=== PATIENT | male | born 1965 | race Caucasian/White ===

== ENCOUNTER 2016-11-23 15:19 | Inpatient (IN) | payer SELFPAY ==
[~2016-11-23] VITALS: Ht 175.3 cm; Wt 138.6 kg
[2016-11-23 15:23] VITALS: BP 159/90; PULSE 68; RESP 13; TEMP 98.4; O2SAT 100
[2016-11-23 15:44] VITALS: BP 152/86; PULSE 71; RESP 19; TEMP 98.4; O2SAT 97
[2016-11-23] MEDS ORDERED: LOVA20TA PO (15:53)
[2016-11-23] MEDS ORDERED: RANI300T PO (15:53)
[2016-11-23] MEDS ORDERED: AMLO5TAB2 PO (15:53)
[2016-11-23] MEDS ORDERED: METF1000 PO (15:53)
[2016-11-23] MEDS ORDERED: LISI-515 PO (15:53)
[2016-11-23] MEDS ORDERED: PRIL20TA2 PO (15:53)
[2016-11-23] MEDS ORDERED: ASPI81CH CHEW (15:53)
--- NOTE | 2016-11-23 15:59 | PD ---
HPI . Chest pain Chief Complaint: Chest Pain Time Seen by Provider: 15:40 Travel History International Travel<30 days: Yes Contact w/Intl Traveler<30days: Yes Name of Country Traveled to: [place] Traveled to known affect area: No History of Present Illness HPI This is a patient from [place] who moved here 5 years ago but he has not yet established himself with a primary care provider here who presents with the chief complaint of chest pain which started yesterday while driving home. He reports that he has been traveling for the last 3 weeks. He's also complaining with epigastric pain. He rates his pain at 2/10. It is associated with burping which temporarily relieves his symptoms. He states that the symptoms have waxed and waned but have not completely resolved in the last 24 hours. He reports some mild nausea and some mild diaphoresis. He denies any shortness of breath. His medical history is significant for hypertension, hyperlipidemia, diabetes, GERD. He states that he has undergone a previous cardiac catheterization in the which showed some mild coronary artery disease. He started taking an aspirin a day at that time. He has had 2 subsequent stress tests which were reportedly negative. He states that one of them was an exercise stress test and the other was a nuclear stress test. PFSH Past Medical History Cardiac Catheterization: Yes Cardiovascular Problems: Yes High Cholesterol: Yes Chest Pain: Yes Coronary Artery Disease: Yes Diabetes: Yes Patient Takes Glucophage: Yes Hypertension: Yes Tetanus Vaccination: Unknown Social History Alcohol Use: Yes Tobacco Use: No Substance Use: No Allergies-Medications (Allergen,Severity, Reaction): Coded Allergies: No Known Allergies (Verified Allergy, Unknown, 11/23/16) Reported Meds & Prescriptions Reported Meds & Active Scripts Active Reported Aspirin 81 Mg Chew 81 Mg CHEW DAILY Prilosec (Omeprazole Magnesium) 20 Mg Tab 1 Tab PO DAILY Ranitidine (Ranitidine HCl) 300 Mg Tab 300 Mg PO DAILY Metformin (Metformin HCl) 1,000 Mg Tab 1,000 Mg PO BIDPC With meals Lovastatin 20 Mg Tab 20 Mg PO DAILY Amlodipine (Amlodipine Besylate) 5 Mg Tab 5 Mg PO DAILY Lisinopril 20 Mg Tab 20 Mg PO DAILY Review of Systems Except as stated in HPI: all other systems reviewed are Neg General / Constitutional: Positive: Other (mild diaphoresis) HENT: Positive: Headaches Cardiovascular: Positive: Chest Pain or Discomfort Respiratory: No: Shortness of Breath Physical Exam Narrative GENERAL: Obese man who does not appear to be in any acute distress. SKIN: warm/dry. HEAD: Normocephalic. Atraumatic. EYES: Pupils equal and round. No scleral icterus. No injection or drainage. ENT: No nasal bleeding or discharge. Mucous membranes pink and moist. NECK: Trachea midline. Full range of motion without pain.. CARDIOVASCULAR: Regular rate and rhythm. Heart sounds are normal. RESPIRATORY: No accessory muscle use. Clear to auscultation. Breath sounds equal bilaterally. GASTROINTESTINAL: Abdomen soft. Nontender. Bowel sounds present. Nondistended. MUSCULOSKELETAL: No obvious deformities. NEUROLOGICAL: Awake and alert. No obvious cranial nerve deficits. Motor grossly within normal limits. Normal speech. PSYCHIATRIC: Appropriate mood and affect; insight and judgment normal. Data Data Last Documented VS Vital Signs Date Time Temp Pulse Resp B/P (MAP) Pulse Ox O2 Delivery O2 Flow Rate FiO2 11/23/16 16:24 98.4 71 19 152/86 (108) 97 Room Air Orders Orders Basic Metabolic Panel (Bmp) (11/23/16 15:51) Ckmb (Isoenzyme) Profile (11/23/16 15:51) Complete Blood Count With Diff (11/23/16 15:51) D-Dimer (11/23/16 15:51) Magnesium (Mg) (11/23/16 15:51) Prothrombin Time / Inr (Pt) (11/23/16 15:51) Act Partial Throm Time (Ptt) (11/23/16 15:51) Troponin I (11/23/16 15:51) Chest, Single Ap (11/23/16 15:51) Ecg Monitoring (11/23/16 15:51) Iv Access Insert/Monitor (11/23/16 15:51) Oximetry (11/23/16 15:51) Morphine Inj (Morphine Inj) (11/23/16 16:00) Nitroglycerin 2% Oint (Nitroglycerin 2% (11/23/16 16:00) Sodium Chloride 0.9% Flush (Ns Flush) (11/23/16 16:00) Ondansetron Inj (Zofran Inj) (11/23/16 16:00) Electrocardiogram (11/23/16 18:30) Consent (11/23/16 17:31) Cardiac Catheterization (11/23/16 17:30) Heparin-Ns/Pf Inj (Heparin-Ns/Pf Inj) (11/23/16 17:58) Sodium Chlorid 0.9% 500 Ml Inj (Ns 500 M (11/23/16 17:59) Admit Order (Ed Use Only) (11/23/16 18:08) Labs Laboratory Tests Test 11/23/16 15:30 White Blood Count 7.5 TH/MM3 Red Blood Count 4.62 MIL/MM3 Hemoglobin 14.2 GM/DL Hematocrit 42.5 % Mean Corpuscular Volume 91.9 FL Mean Corpuscular Hemoglobin 30.8 PG Mean Corpuscular Hemoglobin Concent 33.5 % Red Cell Distribution Width 12.8 % Platelet Count 273 TH/MM3 Mean Platelet Volume 6.9 FL Neutrophils (%) (Auto) 52.8 % Lymphocytes (%) (Auto) 31.1 % Monocytes (%) (Auto) 8.2 % Eosinophils (%) (Auto) 7.1 % Basophils (%) (Auto) 0.8 % Neutrophils # (Auto) 3.9 TH/MM3 Lymphocytes # (Auto) 2.3 TH/MM3 Monocytes # (Auto) 0.6 TH/MM3 Eosinophils # (Auto) 0.5 TH/MM3 Basophils # (Auto) 0.1 TH/MM3 CBC Comment DIFF FINAL Differential Comment Prothrombin Time 10.8 SEC Prothromb Time International Ratio 1.0 RATIO Activated Partial Thromboplast Time 27.2 SEC D-Dimer Quantitative (PE/DVT) 0.24 MG/L FEU Blood Urea Nitrogen 13 MG/DL Creatinine 1.00 MG/DL Random Glucose 202 MG/DL Calcium Level 9.2 MG/DL Magnesium Level 1.7 MG/DL Sodium Level 137 MEQ/L Potassium Level 4.4 MEQ/L Chloride Level 103 MEQ/L Carbon Dioxide Level 27.3 MEQ/L Anion Gap 7 MEQ/L Estimat Glomerular Filtration Rate 79 ML/MIN Total Creatine Kinase 97 U/L Troponin I 0.14 NG/ML Exceptions Acute Myocardial Infarction ASA Not Given on Arrival: Already taken by patient MDM Medical Decision Making Medical Screen Exam Complete: Yes Emergency Medical Condition: Yes Medical Record Reviewed: Yes (no old records here) Interpretation(s) EKG shows a right bundle branch block but no acute ischemic changes. There are no old EKGs are system for comparison Differential Diagnosis Differential diagnosis of chest pain includes but is not limited to musculoskeletal pain, pulmonary embolism, acute coronary syndrome, pneumonia, pleurisy Narrative Course This patient presents complaining with chest pain and headache which started about 24 hours ago. His symptoms have waxed and waned. His cardiac risk factors include hypertension, hyperlipidemia, diabetes and strong family history. He is also morbidly obese. I will do a cardiac workup here along with a d-dimer. Assuming those are negative, he will be admitted to the chest pain center for further evaluation. This patient reports that he really prefers not to be admitted to the hospital for financial reasons. He states that he is self-pay. I have discussed possible alternatives to evaluation. I have explained to him that the safest plan would be for admission to the chest pain center. However, an alternate plan would be to recheck his enzymes at 3 hours and then referred him to cardiology for outpatient evaluation. He is amenable to this plan. He does state that he will stay in the hospital if any of the lab studies are abnormal requiring emergent evaluation such as an elevated troponin or d-dimer. The patient has also declined the morphine and Nitropaste. He states that he is not having chest pain. He does state that he is having left arm pain and a headache. Last Impressions Chest X-Ray 11/23/16 1551 Signed Impressions: Service Date/Time: Wednesday, November 23, 2016 16:22 - CONCLUSION: 1. No acute cardiopulmonary findings identified. Jamie Boles MD The chest x-ray was independently viewed by me. CBC Diagram 11/23/16 15:30 Coags, including d-dimer, are negative. BMP Diagram 11/23/16 15:30 Calcium Level 9.2, Magnesium Level 1.7 trop 0.14. With this information, the patient is willing to stay. He will also now takes the Nitropaste. He still refused morphine. Physician Communication Physician Communication Dr. Lagos would like for the patient be taken straight to the catheter lab. Dr. Mays will admit. Diagnosis Primary Impression: NSTEMI (non-ST elevated myocardial infarction) Admitting Information Admitting Physician Requests: Admit Condition: Stable Aditi Cardona MD Nov 23, 2016 15:59
[2016-11-23] MEDS ORDERED: SODIUM CHLORIDE 0.9% FLUSH 10 ML FLUSH IVF PRN (16:00)
[2016-11-23] MEDS ORDERED: MORPHINE SULFATE 4 MG/ML INJ IV PUSH ONE (16:00)
[2016-11-23] MEDS ORDERED: ONDANSETRON HCL 4 MG/2 ML VIAL IV PUSH ONE (16:00)
[2016-11-23] MEDS ORDERED: NITROGLYCERIN 2% OINT 1 GM PACKET TOP ONE (16:00)
[2016-11-23 16:24] VITALS: BP 152/86; PULSE 71; RESP 19; TEMP 98.4; O2SAT 97
--- NOTE | 2016-11-23 16:37 | RADRPT ---
EXAM DATE/TIME: 11/23/2016 16:22 [facility] COMPARISON: No previous studies available for comparison. INDICATIONS : Chest pain since yesterday. MEDICAL HISTORY : Diabetes mellitus type II. Hypertension SURGICAL HISTORY : None. ENCOUNTER: Initial ACUITY: 2 days PAIN SCORE: 5/10 LOCATION: Bilateral chest FINDINGS: A single view of the chest demonstrates the lungs to be symmetrically aerated without evidence of mas s, infiltrate or effusion. The cardiomediastinal contours are unremarkable. Osseous structures are intact. CONCLUSION: 1. No acute cardiopulmonary findings identified. Jamie Boles MD on November 23, 2016 at 16:35 Board Certified Radiologist. This report was verified electronically.
[2016-11-23 16:47] LABS: AUTOMATED NEUTROPHIL # 3.9 TH/MM3 (1.8-7.7); BASOPHIL # 0.1 TH/MM3 (0-0.2); BASOPHIL % 0.8 % (0.0-2.0); EOSINOPHIL # 0.5 TH/MM3 (0-0.4); EOSINOPHIL % 7.1 % (0.0-4.0); HEMATOCRIT 42.5 % (39.0-51.0); HEMO FLAGS DIFF FINAL; LYMPH % 31.1 % (9.0-44.0); LYMPHOCYTE # 2.3 TH/MM3 (1.0-4.8); MEAN CELL VOLUME 91.9 FL (80.0-100.0); MEAN CORPUSCULAR HEMOGLOBIN 30.8 PG (27.0-34.0); MEAN CORPUSCULAR HGB CONC 33.5 % (32.0-36.0); MONO % 8.2 % (0.0-8.0); NEUT % 52.8 % (16.0-70.0); PLATELET COUNT 273 TH/MM3 (150-450); RED BLOOD COUNT 4.62 MIL/MM3 (4.50-5.90); RED CELL DISTRIBUTION WIDTH 12.8 % (11.6-17.2); WHITE BLOOD COUNT 7.5 TH/MM3 (4.0-11.0)
[2016-11-23 17:01] LABS: APTT (PATIENT) 27.2 SEC (24.3-30.1); PROTHROMBIN TIME - PATIENT 10.8 SEC (9.8-11.6)
[2016-11-23 17:09] LABS: BICARBONATE 27.3 MEQ/L (21.0-32.0); MAGNESIUM 1.7 MG/DL (1.5-2.5); POTASSIUM 4.4 MEQ/L (3.5-5.1)
[2016-11-23] MEDS ORDERED: HEPARIN-NS/PF INJ 1,000 ML ONE ×3 (17:58→19:43)
[2016-11-23] MEDS ORDERED: SODIUM CHLORID 0.9% 500 ML INJ 500 ML ONE ×3 (17:59→19:45)
[2016-11-23 18:12] VITALS: BP 183/97
[2016-11-23] MEDS ORDERED: SODIUM CHLOR 0.9% 1000 ML INJ 1,000 ML IV SCH ×2 (18:28→21:50)
[2016-11-23] MEDS ORDERED: NITROGLYCERIN INJ 5 ML ONE (18:30)
[2016-11-23] MEDS ORDERED: BISACODYL 10 MG SUPP RECTAL PRN (18:30)
[2016-11-23] MEDS ORDERED: ONDANSETRON HCL 4 MG/2 ML VIAL IVP PRN (18:30)
[2016-11-23] MEDS ORDERED: SENNOSIDES 8.6 MG TAB PO PRN (18:30)
[2016-11-23] MEDS ORDERED: MIDAZOLAM HCL 2 MG/2 ML VIAL ONE ×7 (18:30→20:34)
[2016-11-23] MEDS ORDERED: MAGNESIUM HYDROXIDE SUSP 30 ML CUP PO PRN (18:30)
[2016-11-23] MEDS ORDERED: NALOXONE HCL 0.4 MG/ML AMP IV PUSH PRN (18:30)
[2016-11-23] MEDS ORDERED: LACTULOSE SYRUP 20 GM/30 ML CUP PO PRN (18:30)
[2016-11-23] MEDS ORDERED: SODIUM CHLORIDE 0.9% FLUSH 10 ML FLUSH IV FLUSH PRN (18:30)
[2016-11-23] MEDS ORDERED: IOHEXOL 350 MG/ML 100 ML BTL (for Cath Lab) OTHER ONE (18:42)
[2016-11-23] MEDS ORDERED: LIDOCAINE HCL 1% PF 30 ML VIAL ONE ×2 (19:01→19:16)
[2016-11-23] MEDS ORDERED: HEPARIN SODIUM - IV 10,000 UNITS/10 ML VIAL ONE (19:15)
[2016-11-23] MEDS ORDERED: SODIUM NITROPRUSSIDE 50 MG/2 ML VIAL ONE (19:53)
[2016-11-23] MEDS ORDERED: TICAGRELOR 90 MG TAB PO ONE (20:49)
--- NOTE | 2016-11-23 21:25 | CATHPROC ---
[facility] HIS Report Study Information Study Number Admission Scheduled Start Study Start [id number] Nov 23 2016 3:19PM 11/23/2016 Nov 23 2016 5:59PM [place] [facility] Cardiac Catheterization Admit Source Facility Department Emergency department [facility] - [facility] Operator Physician and Clinical Staff Initial Kathleen Hartmann Dry Dip Worker Ivone Rodriguez BSRPaul Recorder Veda Shelby,RT(R) (BS) Scrub Walter Trimble RCIS(BS) Procedures Performed Procedure Location (Site) Vessel Name Angiogram LV LV Ventricle Coronary Angiograms LCA Left Coronary Coronary Angiograms RCA Right Coronary Drug Eluting Inflatio RCA Right Coronary Drug Eluting Inflatio RCA Dist Right Coronary Drug Eluting Inflatio RCA Mid Right Coronary Drug Eluting Inflatio RCA Prox Right Coronary L Heart Cath PTCA RCA Right Coronary PTCA RCA Dist Right Coronary PTCA ADD ON'S Wire insertion Fem Art (right) Femoral Art Equipment Time Felter Tennis Balls Description Size Mfg Part Number Used/Scraped WIRE, BALANCE MIDDLEWEIGHT [id number] 19:07 [employer] 190CM Used 190CM *[id number] WIRE, BALANCE MIDDLEWEIGHT [id number] 19:29 [employer] 300CM Used 300CM *[id number] WIRE, HI TORQUE ALLSTAR [id number] 19:21 [employer] 190CM Used 190CM *[id number] WIRE, HI TORQUE ALLSTAR [id number] 19:22 [employer] 190CM Used 190CM *[id number] TRANSDUCER, TRUWAVE [id number] 18:04 HURT GREWAL * Used W/STOCKCOCK *[id number] 20:21 [employer] BALLOON, 2.5 15MM EMERGE MR 2.5 15MM Used *[id number] CARDIOVASCULAR CATHETER, CORONARY CLASSIC [id number] 19:43 Used [employer]S [employer]. 1.25MM *[id number] CARDIOVASCULAR WIRE, VIPER ADVANCE [id number] 19:38 Used [employer] CORONARY FLP *[id number] [phone] *[id number] [phone] *2413816 534-548T *9049451 534-520T *[id number] 534-552S *[id number] *[id number] 20:48 DAIG/ST. DOMINIC MEDICAL ANGIOSEAL, FR6 VIP FR 6 Used *[id number] [id number] 18:04 MEDLINE INDUSTRIES PACK, CCL CUSTOM * Used *6864107 [id number] 18:04 MEDLINE PACER PEN, SKIN DUAL W/ RULER * Used *[id number] BALLOON, 1.25 X 6MM SPRINTER [id number] 19:29 MED[employer] 6MM Used LEGEND OTW *6716717 BALLOON, 2.0 X 12MM SPRINTER [id number] 19:12 [employer] 12MM Used LEGEND *[id number] 20:28 [employer] STENT, 3.0 30MM EFREN 3.0 30MM Used *5904208 [id number] 20:33 [employer] STENT, 3.0 30MM EFREN 3.0 30MM Used *1449038 [id number] 20:40 [employer] STENT, 3.5 34MM EFREN 3.5 34MM Used *7116610 [id number] 19:00 [employer] 30 GABBI INDEFLATOR Used *[id number] 19:00 [employer] SHEATH, FR6.5 PRELUDE 11CM FR 6.5 038ACT Used *2267530 [id number] 18:04 [employer] WIRE, 3MMJ .035 180CM 180CM Used *[id number] PROBE COVER, STERILE [id number] 18:04 [employer] * Used ULTRASOUND W/ GEL *[id number] [id number] 18:04 NAMIC MANIFOLD, 4 PORT * Used *4423916 [id number] 19:01 NAMIC TUBING, HIGH PRESSURE 48" 48" Used *0739351 [id number] 19:01 NAMIC TUBING, HIGH PRESSURE 48" 48" Used *1357649 [id number] 18:04 NAMIC TUBING, HIGH PRESSURE 48" 48" Used *[id number] 18:04 [employer] OMNIPAQUE, 350 MG, 150ML 150ML [id number] Used 19:00 [employer]COM[employer] OMNIPAQUE, 350 MG, 150ML 150ML [id number] Used [id number] 18:04 [employer] BL[employer]ET,WARM AIR CCL * Used *[id number] [id number] 18:04 [employer] MEDICAL SHEATH, FR5 TERUMO (10CM) FR 5 Used *[id number] Equipment Model, Serial, Lot Number and Expiration Data Description Model Number Serial Number Lot Number Expiration Srikanth e BALLOON, 2.5 15MM EMERGE MR [id number] 02-04-2019 STENT, 3.0 30MM EFREN [id number] 07-16-2018 STENT, 3.0 30MM EFREN [id number] 07-16-2018 STENT, 3.5 34MM EFREN [id number] 07-29-2018 WIRE, LUIS ADVANCE CORONARY [id number] 04-07-2018 History: Current Medications Medication Dosage/Unit Route Frequency Last Date/Time Taken Statins (any) ASA History: Allergies Allergy Reaction No Known Allergies History: Risk Factors Family History of Hypertension Dyslipidemia Previous MA Previous Heart Failure Premature CAD Yes Yes Yes No No Prior Valve Prior PCI Prior CABG Surgery No No No Cerebrovascular Peripheral Artery Chronic Lung On Dialysis Diabetes Diabetes Therapy Disease Disease Disease No No No No Yes Oral History: Symptoms/Diagnosis Selection Items Chest pain History: Stress Tests Stress or Imaging Studies Performed No History: Other Current Smoker No Labs Hgb (g/dl) Hct (%) RBC (MIL/MM3) WBC (l/cumm) Platelets (thousands) 11.60-17.00 35.00-51.00 4.00-5.90 4.00-11.00 150.00-450.00 14.2 42.5 4.6 7.5 273 Glucose (mg/dl) BUN (mg/dl) Creatinine (mg/dl) BUN:Creatinine (1:x) 74.00-106.00 7.00-18.00 0.50-1.30 10.00-20.00 202 13 1.0 13 Na (meq/l) K (meq/l) 136.00-145.00 3.50-5.10 137 4.4 INR (PTT:PT) 0.90-1.10 1 Troponin I (ng/ml) CPK-MB (ng/ML) 0.02-0.05 0.50-3.60 0.14 Not Drawn Medication Medication Total Dose (Bolus/Oral) Medication Total Dosage/Unit 1% XYLOCAINE 40 mL BRILINTA 180 mg FENTANYL 400 mcg HEPARIN 54190 units NTG (IC) 500 mcg OXYGEN 2 l/min VERSED 13 mg Medications (Bolus/Oral) Medication Time Given Dosage/Unit Administered By Reason VERSED 11/23/2016 6:37:58 PM 1 mg Ivone Rodriguez 1 mg VERSED given in lab by Ivnoe Rodriguez BSRN in Left Antecubital via Peripheral IV. FENTANYL 11/23/2016 6:38:42 PM 25 mcg Michael, Ivone 25 mcg FENTANYL given in lab by Ivone Rodriguez BSRN in Left Antecubital via Peripheral IV. FENTANYL 11/23/2016 6:40:34 PM 25 mcg Michael, Ivone 25 mcg FENTANYL given in lab by Ivone Rodriguez BSRN in Left Antecubital via Peripheral IV. 1% XYLOCAINE 11/23/2016 6:43:38 PM 30 mL Demond, Edelmirakar 30 mL 1% XYLOCAINE given in lab by Kathleen Lagos in Right Groin via Subcutaneous. VERSED 11/23/2016 6:44:08 PM 1 mg Maddy Rodriguezy 1 mg VERSED given in lab by Ivone Rodriguez BSRN in Left Antecubital via Peripheral IV. 1% XYLOCAINE 11/23/2016 7:02:55 PM 5 mL Edelmira Lagoskar 5 mL 1% XYLOCAINE given in lab by Kathleen Lagos in Right Groin via Subcutaneous. HEPARIN 11/23/2016 7:03:19 PM 83590 units Cabreraat, Edelmirakar 36077 units HEPARIN given in lab by Kathleen Lagos in Left Antecubital via Peripheral IV. VERSED 11/23/2016 7:04:07 PM 1 mg Quadrat, Otakar 1 mg VERSED given in lab by Kathleen Lagos in Left Antecubital via Peripheral IV. NTG (IC) 11/23/2016 7:11:31 PM 200 mcg Demond, Edelmirakar 200 mcg NTG (IC) given in lab by Kathleen Lagos via Intra-coronary. HEPARIN 11/23/2016 7:15:44 PM 2000 units Ivone Rodriguez 2000 units HEPARIN given in lab by Ivone Rodriguez BSRN in Left Antecubital via Peripheral IV. FENTANYL 11/23/2016 7:16:21 PM 50 mcg Michael, Ivone 50 mcg FENTANYL given in lab by Ivone Rodriguez BSRN in Left Antecubital via Peripheral IV. 1% XYLOCAINE 11/23/2016 7:16:40 PM 5 mL Demond, Edelmirakar 5 mL 1% XYLOCAINE given in lab by Kathleen Lagos in Right Groin via Subcutaneous. VERSED 11/23/2016 7:17:28 PM 1 mg Rittenour, Ivone 1 mg VERSED given in lab by Ivone Rodriguez BSRN in Left Antecubital via Peripheral IV. FENTANYL 11/23/2016 7:18:10 PM 50 mcg Rittenour, Ivone 50 mcg FENTANYL given in lab by Ivone Rodriguez BSRN in Left Antecubital via Peripheral IV. OXYGEN 11/23/2016 7:21:36 PM 2 l/min Michael, Ivone 2 l/min OXYGEN given in lab by Ivone Rodriguez BSRN via Nasal. VERSED 11/23/2016 7:38:38 PM 2 mg Rittenour, Ivone 2 mg VERSED given in lab by Ivone Rodriguez BSRN in Left Antecubital via Peripheral IV. VERSED 11/23/2016 7:44:13 PM 2 mg Rittenour, Ivone 2 mg VERSED given in lab by Ivone Rodriguez BSRN in Left Antecubital via Peripheral IV. FENTANYL 11/23/2016 7:45:28 PM 50 mcg Rittenour, Ivone 50 mcg FENTANYL given in lab by Ivone Rodriguez BSRN in Left Antecubital via Peripheral IV. HEPARIN 11/23/2016 7:55:19 PM 2000 units Ivone Rodriguez 2000 units HEPARIN given in lab by Ivone Rodriguez BSRN in Left Antecubital via Peripheral IV. FENTANYL 11/23/2016 7:59:25 PM 50 mcg Rittenour, Ivone 50 mcg FENTANYL given in lab by Ivone Rodriguez BSRN in Left Antecubital via Peripheral IV. NTG (IC) 11/23/2016 8:03:10 PM 100 mcg Kathleen Lagos 100 mcg NTG (IC) given in lab by Kathleen Lagos via Intra-coronary. VERSED 11/23/2016 8:03:55 PM 2 mg Rittenour, Ivone 2 mg VERSED given in lab by Ivone Rodriguez BSRN in Left Antecubital via Peripheral IV. FENTANYL 11/23/2016 8:05:08 PM 50 mcg Rittenour, Ivone 50 mcg FENTANYL given in lab by Ivone Rodriguez BSRN in Left Antecubital via Peripheral IV. VERSED 11/23/2016 8:10:28 PM 1 mg Rittenour, Ivone 1 mg VERSED given in lab by Ivone Rodriguez BSRN in Left Antecubital via Peripheral IV. FENTANYL 11/23/2016 8:13:04 PM 50 mcg Rittenour, Ivone 50 mcg FENTANYL given in lab by Ivone Rodriguez BSRN in Left Antecubital via Peripheral IV. NTG (IC) 11/23/2016 8:26:17 PM 200 mcg Kathleen Lagos 200 mcg NTG (IC) given in lab by Kathleen Lagos via Intra-coronary. VERSED 11/23/2016 8:32:28 PM 2 mg Rittenour, Ivone 2 mg VERSED given in lab by Ivone Rodriguez BSRN in Left Antecubital via Peripheral IV. FENTANYL 11/23/2016 8:33:24 PM 50 mcg Rittenour, Ivone 50 mcg FENTANYL given in lab by Ivone Rodriguez BSRN in Left Antecubital via Peripheral IV. BRILINTA 11/23/2016 8:51:01 PM 180 mg Rittenour, Ivone 180 mg BRILINTA given in lab by Ivone Rodriguez BSRN via Oral. Medication (Drip) Medication Time Given Dosage/Unit Concentration/Unit Diluent (ml) Solution IV Solutions 11/23/2016 6:15:24 PM 0 mL (IV) 1000 NaCl .9 IV Solutions given in lab by Ivone Rodriguez BSRN in Left Antecubital via Peripheral IV. Pump/Drip Flow = 100 ml/hr using NaCl .9. NIPRIDE 11/23/2016 7:55:42 PM 50 mcg 50 mcg NIPRIDE given in lab by Kathleen Lagos via Intra-coronary. NIPRIDE 11/23/2016 8:03:55 PM 50 mcg 50 mcg NIPRIDE given in lab by Kathleen Lagos via Intra-coronary. NIPRIDE 11/23/2016 8:11:00 PM 50 mcg 50 mcg NIPRIDE given in lab by Kathleen Lagos via Intra-coronary. Initial Case Assessment Cardiovascular HR Rhythm NIBP Chest Pain 77 reg 144/77 0 Edema Present Skin color Skin None Normal Warm Dry Circulatory - Right Pulses Dorsalis Pedis Femoral 2 2 Scale (0,1,2,3,4,d) Circulatory - Left Pulses Dorsalis Pedis Femoral 1 2 Scale (0,1,2,3,4,d) Circulatory - Lower Extremities Color Lower Right Color Lower Left Normal Normal Neurological State Oriented to time-place- Alert Moves all extremities person Respiration - General Respiration Rate SpO2 (%) (B/min) 20 98 Chronological Log Time Study Chronological Log 18:15:14 Patient arrived via Bed. 18:15:15 Patient Name, D.O.B, / Armband Verified By R.N. 18:15:15 Consent signed by the physician and the patient and verified by the [facility] staff. 18:15:16 Pre-op and post- op instructions given; patient acknowledges understanding of instructions. 18:15:17 Verbal Stimulation=2 Physical Stimulation=2 Airway=2 Respiration=2 TOTAL=8. (0=absent, 1=li mited, 2=present) 18:15:18 Presedation assessment performed by Shotweld Operator RN. 18:15:20 Patient has been NPO for More than 6Hrs. 18:15:21 Skin Breakdown none per pt 18:15:23 [place] Prominences Protected 18:15:24 A # 20 IV was noted in the Antecubital (left). Grade = 0 IV Solutions given in lab by Ivone Rodriguez BSRN in Left Antecubital via Peripheral IV. Pump /Drip Flow = 100 ml/hr 18:15:24 using NaCl .9. 18:15:25 History and physical on the chart or being dictated. Assessment: Initial Case, HR=77 BPM, Rhythm=reg, SPTP=880/77 mmhg, Chest Pain=0, Edema=None, Co kentrell=Normal, Skin = Warm, Dry Right Pulses: Reed Ped=2, Femoral=2 Left Pulses: Reed Ped=1, Femoral=2 18:15:26 Lower Right Extremities: Color=Normal Lower Left Extremities: Color=Normal Neurological: State=Alert, Ox3, RUDD Respiration: Resp=20 B/min, SpO2=98 % Vitals capture started with the following parameters, Patient=Adult, Interval=5 min, Initial Pr htnmsh=326 mmHg, 18:24:58 Deflation Rate=5 mmHg, Cuff placed on Left Ankle 18:25:25 Reference ECG taken 18:25:41 HR=80 bpm, TTIP=766/77 mmhg, SpO2=98.0 %, Resp=21 B/min, Pain=0, Audra=10, Logan=2 18:30:40 HR=78 bpm, SXZJ=347/78 mmhg, SpO2=98.0 %, Resp=23 B/min, Pain=0, Audra=10, Logan=2 18:30:40 Bilateral groins prepped with 2% chlorhexidine, and with a 3 min. waiting time. 18:35:39 HR=83 bpm, NWEH=422/88 mmhg, SpO2=98.0 %, Resp=24 B/min, Pain=0, Audra=10, Logan=2 18:37:58 1 mg VERSED given in lab by Ivone Rodriguez BSRN in Left Antecubital via Peripheral IV. 18:38:42 25 mcg FENTANYL given in lab by Ivone Rodriguez BSRN in Left Antecubital via Peripheral I V. 18:40:34 25 mcg FENTANYL given in lab by Ivone Rodriguez BSRN in Left Antecubital via Peripheral I V. 18:40:43 HR=80 bpm, SAJG=554/74 mmhg, SpO2=97.0 %, Resp=13 B/min, Pain=0, Audra=10, Logan=2 Time Out. Correct patient, correct procedure,correct physician, power injector loaded or not lo aded with contrast with 18:42:46 surgical team present. Time Out Concurred by MD, individual staff and TANGIBLE PERSONAL PROPERTY APPRAISER in procedure 18:42:55 Case Start 18:43:20 Pressure channel 1 zeroed. 18:43:38 30 mL 1% XYLOCAINE given in lab by Kathleen Lagos in Right Groin via Subcutaneous. 18:44:08 1 mg VERSED given in lab by Ivone Rodriguez BSRN in Left Antecubital via Peripheral IV. 18:45:42 HR=83 bpm, JOQB=010/75 mmhg, SpO2=95.0 %, Resp=18 B/min, Pain=0, Audra=10, Logan=2 18:47:14 Access site was Right Femoral Artery using ultrasound 18:47:28 A SHEATH, FR5 TERUMO (10CM) FR 5 was advanced into the Fem Art (right) using the Percutaneo us technique. A PIGTAIL ANG. INFINITI CATHETER FR 5 was advanced over a wire. OMNIPAQUE, 350 MG, 150ML 150ML was used 18:48:20 for injections. Recorded Pressure: LV, HR=81, Condition=Condition 1 18:49:13 (Left Ventricle) LV 120/3/8 18:50:11 The LV was injected at 10 cc/sec for a total of 30. OMNIPAQUE, 350 MG, 150ML 150ML used. 18:50:39 HR=79 bpm, DNBG=225/74 mmhg, SpO2=92.0 %, Resp=14 B/min, Pain=0, Audra=10, Logan=2 Recorded Pressure: LV, Ao, HR=81, Condition=Condition 1 18:50:52 (Left Ventricle) LV 114/7/7, (Aorta) Ao 109/47/83 18:51:28 Catheter was removed A AR MOD INFINITI CATHETER FR 5 was advanced over a wire. OMNIPAQUE, 350 MG, 150ML 150ML was us ed for 18:52:59 injections. Recorded Pressure: Ao, HR=81, Condition=Condition 1 18:54:10 (Aorta) Ao 122/80/99 18:55:09 The RCA was injected and visualized at various angles. OMNIPAQUE, 350 MG, 150ML 150ML used . 18:55:42 HR=80 bpm, SLHJ=208/74 mmhg, SpO2=95.0 %, Resp=11 B/min, Pain=0, Audra=10, Logan=2 18:56:10 Catheter was removed A JL 4.0 INFINITI CATHETER FR 5 was advanced over a wire. OMNIPAQUE, 350 MG, 150ML 150ML was us ed for 18:57:00 injections. 18:57:27 The LCA was injected and visualized at various angles. OMNIPAQUE, 350 MG, 150ML 150ML used . 18:59:23 Catheter was removed 18:59:27 OMNIPAQUE, 350 MG, 150ML 150ML and 30 GABBI INDEFLATOR added. A SHEATH, FR6.5 PRELUDE 11CM FR 6.5 was exchanged in the Fem Art (right). This was necessary in order to 19:00:01 accomodate a larger catheter. 19:00:41 HR=82 bpm, MJEV=991/81 mmhg, SpO2=96.0 %, Resp=15 B/min, Pain=0, Audra=10, Logan=2 19:02:55 5 mL 1% XYLOCAINE given in lab by Kathleen Lagos in Right Groin via Subcutaneous. 19:03:19 09830 units HEPARIN given in lab by Kathleen Lagos in Left Antecubital via Peripheral IV. 19:03:27 A AR 1 GUIDE CATHETER FR 6 was advanced over a wire. OMNIPAQUE, 350 MG, 150ML 150ML was use d for injections. 19:04:07 1 mg VERSED given in lab by Kathleen Lagos in Left Antecubital via Peripheral IV. 19:05:40 HR=85 bpm, TCXE=005/83 mmhg, SpO2=93.0 %, Resp=27 B/min, Pain=0, Audra=10, Logan=2 19:06:08 A WIRE, BALANCE MIDDLEWEIGHT 190CM 190CM was inserted via Fem Art (right). 19:09:27 Activated Clotting Time Drawn 19:10:45 HR=82 bpm, OWWC=041/74 mmhg, SpO2=96.0 %, Resp=20 B/min, Pain=0, Audra=10, Logan=2 19:11:31 200 mcg NTG (IC) given in lab by Kathleen Lagos via Intra-coronary. A BALLOON, 2.0 X 12MM SPRINTER LEGEND 12MM was inserted over WIRE, BALANCE MIDDLEWEIGHT 190CM 1 90CM 19:11:46 via the Fem Art (right). 19:13:05 Balloon Removed 19:13:56 ACT (Normal Range 90-180) = 237 19:15:06 Wire removed 19:15:40 HR=81 bpm, LLIT=727/83 mmhg, SpO2=95.0 %, Resp=29 B/min, Pain=0, Audra=10, Logan=2 19:15:44 2000 units HEPARIN given in lab by Ivone Rodriguez BSRN in Left Antecubital via Periphera l IV. 19:16:21 50 mcg FENTANYL given in lab by Ivone Rodriguez BSRN in Left Antecubital via Peripheral I V. 19:16:40 5 mL 1% XYLOCAINE given in lab by Kathleen Lagos in Right Groin via Subcutaneous. 19:17:28 1 mg VERSED given in lab by Ivone Rodriguez BSRN in Left Antecubital via Peripheral IV. 19:18:10 50 mcg FENTANYL given in lab by Ivone Rodriguez BSRN in Left Antecubital via Peripheral I V. 19:19:22 A WIRE, BALANCE MIDDLEWEIGHT 190CM 190CM was inserted via Fem Art (right). 19:20:45 HR=80 bpm, GNON=617/76 mmhg, SpO2=93.0 %, Resp=15 B/min, Pain=0, Audra=10, Logan=2 19:20:48 Activated Clotting Time Drawn 19:21:13 A WIRE, HI TORQUE ALLSTAR 190CM 190CM was inserted via Fem Art (right). 19:21:36 2 l/min OXYGEN given in lab by Ivone Rodriguez BSRN via Nasal. A BALLOON, 2.0 X 12MM SPRINTER LEGEND 12MM was inserted over WIRE, HI TORQUE ALLSTAR 190CM 190C M via 19:23:54 the Fem Art (right). 19:25:25 Balloon Removed 19:25:44 HR=81 bpm, JPFN=884/86 mmhg, SpO2=97.0 %, Resp=16 B/min, Pain=0, Audra=10, Logan=2 19:26:09 ACT (Normal Range 90-180) = 264 19:30:43 HR=81 bpm, IWDS=141/93 mmhg, SpO2=99.0 %, Resp=75 B/min, Pain=0, Audra=10, Logan=2 19:31:34 A WIRE, BALANCE MIDDLEWEIGHT 300CM 300CM was inserted via Fem Art (right). 19:32:15 Wire removed All Star 19:33:13 Wire removed BMW A BALLOON, 1.25 X 6MM SPRINTER LEGEND OTW 6MM was inserted over WIRE, BALANCE MIDDLEWEIGHT 300C M 19:34:59 300CM via the Fem Art (right). 19:35:44 HR=77 bpm, PQGV=311/94 mmhg, SpO2=98.0 %, Resp=34 B/min, Pain=0, Audra=10, Logan=2 19:38:38 2 mg VERSED given in lab by Ivone Rodriguez BSRN in Left Antecubital via Peripheral IV. 19:39:25 A WIRE, VIPER ADVANCE CORONARY was inserted via Fem Art (right). 19:40:49 HR=77 bpm, PSVW=525/82 mmhg, SpO2=95.0 %, Resp=20 B/min, Pain=0, Audra=10, Logan=2 19:42:04 Balloon Removed. 19:43:41 A catheter was advanced over a wire. contrast was used for injections. 19:44:13 2 mg VERSED given in lab by Ivone Rodriguez BSRN in Left Antecubital via Peripheral IV. 19:45:28 50 mcg FENTANYL given in lab by Ivone Rodriguez BSRN in Left Antecubital via Peripheral I V. 19:45:46 HR=82 bpm, TGVR=457/84 mmhg, SpO2=96.0 %, Resp=47 B/min, Pain=0, Audra=10, Logan=2 19:48:05 CSI in progress 19:48:54 CSI in progress 19:49:47 CSI in progress 19:50:32 CSI in progress 19:50:45 HR=82 bpm, LHBN=915/85 mmhg, SpO2=95.0 %, Resp=17 B/min, Pain=0, Audra=10, Logan=2 19:51:21 CSI in progress 19:55:19 2000 units HEPARIN given in lab by Ivone Rodriguez BSRN in Left Antecubital via Periphera l IV. 19:55:42 50 mcg NIPRIDE given in lab by Kathleen Lagos via Intra-coronary. 19:56:25 HR=71 bpm, AICO=725/95 mmhg, SpO2=98.0 %, Resp=41 B/min, Pain=0, Audra=10, Logan=2 19:56:48 CSI in progress 19:57:54 CSI in progress 19:59:25 50 mcg FENTANYL given in lab by Ivone Rodriguez BSRN in Left Antecubital via Peripheral I V. 20:00:18 CSI in progress 20:00:50 HR=81 bpm, WSGK=198/104 mmhg, SpO2=99.0 %, Resp=12 B/min, Pain=0, Audra=10, Logan=2 20:03:10 100 mcg NTG (IC) given in lab by Kathleen Lagos via Intra-coronary. 20:03:55 2 mg VERSED given in lab by Ivone Rodriguez BSRN in Left Antecubital via Peripheral IV. 20:03:55 50 mcg NIPRIDE given in lab by Kathleen Lagos via Intra-coronary. 20:05:08 50 mcg FENTANYL given in lab by Ivone Rodriguez BSRN in Left Antecubital via Peripheral I V. 20:05:29 CSI in progress 20:05:53 HR=69 bpm, WOHD=005/92 mmhg, SpO2=96.0 %, Resp=13 B/min, Pain=0, Audra=10, Logan=2 20:07:11 CSI in progress 20:07:48 CSI in progress 20:09:35 CSI in progress 20:10:28 1 mg VERSED given in lab by Ivone Rodriguez BSRN in Left Antecubital via Peripheral IV. 20:10:50 HR=82 bpm, WYZY=550/95 mmhg, SpO2=97.0 %, Resp=15 B/min, Pain=0, Audra=10, Logan=2 20:11:00 50 mcg NIPRIDE given in lab by Kathleen Lagos via Intra-coronary. 20:11:32 CSI in progress 20:13:04 50 mcg FENTANYL given in lab by Ivone Rodriguez BSRN in Left Antecubital via Peripheral I V. 20:14:14 CSI removed 20:15:40 A WIRE, HI TORQUE ALLSTAR 190CM 190CM was inserted via Fem Art (right). 20:15:51 HR=71 bpm, QWZN=556/96 mmhg, SpO2=97.0 %, Resp=36 B/min, Logan=2 A BALLOON, 2.0 X 12MM SPRINTER LEGEND 12MM was inserted over WIRE, HI TORQUE ALLSTAR 190CM 190C M via 20:17:39 the RCA. A BALLOON, 2.0 X 12MM SPRINTER LEGEND 12MM over a WIRE, BALANCE MIDDLEWEIGHT 190CM 190CM in the RCA 20:19:19 was inflated using a 30 GABBI INDEFLATOR at 10 gabbi for 20 sec. 20:20:02 Balloon Removed. 20:20:50 HR=81 bpm, AMSC=430/96 mmhg, SpO2=96.0 %, Resp=16 B/min, Pain=0, Audra=10, Logan=2 A BALLOON, 2.5 15MM EMERGE MR 2.5 15MM was inserted over WIRE, BALANCE MIDDLEWEIGHT 190CM 190CM via 20:21:28 the Fem Art (right). A BALLOON, 2.5 15MM EMERGE MR 2.5 15MM over a WIRE, BALANCE MIDDLEWEIGHT 190CM 190CM in the RCA Dist 20:21:53 was inflated using a 30 GABBI INDEFLATOR at 14 gabbi for 30 sec. A BALLOON, 2.5 15MM EMERGE MR 2.5 15MM over a WIRE, BALANCE MIDDLEWEIGHT 190CM 190CM in the RCA was 20:22:15 inflated using a 30 GABBI INDEFLATOR at 14 gabbi for 20 sec. A BALLOON, 2.5 15MM EMERGE MR 2.5 15MM over a WIRE, BALANCE MIDDLEWEIGHT 190CM 190CM in the RCA was 20:22:52 inflated using a 30 GABBI INDEFLATOR at 14 gabbi for 20 sec. A BALLOON, 2.5 15MM EMERGE MR 2.5 15MM over a WIRE, BALANCE MIDDLEWEIGHT 190CM 190CM in the RCA was 20:23:03 inflated using a 30 GABBI INDEFLATOR at 14 gabbi for 20 sec. A BALLOON, 2.5 15MM EMERGE MR 2.5 15MM over a WIRE, BALANCE MIDDLEWEIGHT 190CM 190CM in the RCA was 20:23:32 inflated using a 30 GABBI INDEFLATOR at 14 gabbi for 12 sec. A BALLOON, 2.5 15MM EMERGE MR 2.5 15MM over a WIRE, BALANCE MIDDLEWEIGHT 190CM 190CM in the RCA was 20:24:00 inflated using a 30 GABBI INDEFLATOR at 14 gabbi for 12 sec. 20:25:47 HR=81 bpm, BOWM=981/93 mmhg, SpO2=97.0 %, Resp=16 B/min, Pain=0, Audra=10, Logan=2 20:26:17 200 mcg NTG (IC) given in lab by Kathleen Lagos via Intra-coronary. 20:27:16 Balloon Removed A STENT, 3.0 30MM EFREN 3.0 30MM was advanced through a AL 1 GUIDE CATHETER FR 6 over a WIRE, BA NERY 20:28:03 MIDDLEWEIGHT 190CM 190CM. 20:28:43 Wire removed viper A STENT, 3.0 30MM EFREN 3.0 30MM was deployed using a 30 GABBI INDEFLATOR at 15 atmospheres for 20 seconds in 20:29:35 the RCA. A STENT, 3.0 30MM EFREN 3.0 30MM was deployed using a 30 GABBI INDEFLATOR at 18 atmospheres for 20 seconds in 20:30:33 the RCA Dist. 20:30:52 HR=69 bpm, NJKB=982/86 mmhg, SpO2=95.0 %, Resp=26 B/min, Pain=0, Audra=10, Logan=2 20:32:03 Delivery device removed 20:32:28 2 mg VERSED given in lab by Ivone Rodriguez BSRN in Left Antecubital via Peripheral IV. 20:33:24 50 mcg FENTANYL given in lab by Ivone Rodriguez BSRN in Left Antecubital via Peripheral I V. A STENT, 3.0 30MM EFREN 3.0 30MM was advanced through a AL 1 GUIDE CATHETER FR 6 over a WIRE, BA NERY 20:33:59 MIDDLEWEIGHT 190CM 190CM. A STENT, 3.0 30MM EFREN 3.0 30MM was deployed using a 30 GABBI INDEFLATOR at 18 atmospheres for 30 seconds in 20:35:21 the RCA Mid. 20:35:49 HR=84 bpm, KSGX=283/94 mmhg, SpO2=94.0 %, Resp=19 B/min, Pain=0, Audra=10, Logan=2 A STENT, 3.0 30MM EFREN 3.0 30MM was deployed using a 30 GABBI INDEFLATOR at 18 atmospheres for 30 seconds in 20:35:56 the RCA. 20:37:20 Delivery device removed 20:40:48 HR=81 bpm, JKPM=298/97 mmhg, SpO2=96.0 %, Resp=21 B/min, Pain=0, Audra=10, Logan=2 A STENT, 3.5 34MM EFREN 3.5 34MM was advanced through a AL 1 GUIDE CATHETER FR 6 over a WIRE, B ALANCE 20:41:34 MIDDLEWEIGHT 190CM 190CM. A STENT, 3.5 34MM EFREN 3.5 34MM was deployed using a 30 GABBI INDEFLATOR at 12 atmospheres for 3 0 seconds in 20:41:52 the RCA Prox. A STENT, 3.5 34MM EFREN 3.5 34MM was deployed using a 30 GABBI INDEFLATOR at 12 atmospheres for 3 0 seconds in 20:42:41 the RCA. 20:43:15 Delivery device removed 20:45:49 HR=81 bpm, DNLW=095/89 mmhg, SpO2=99.0 %, Resp=26 B/min, Pain=0, Audra=10, Logan=2 20:46:00 Wire removed 20:46:08 Catheter was removed 20:47:20 An injection in the Fem Art (right) was made through the SHEATH, FR6.5 PRELUDE 11CM FR 6.5 . 20:48:02 ANGIOSEAL, FR6 VIP FR 6 placement in the Fem Art (right) 20:50:40 Case End 20:51:01 180 mg BRILINTA given in lab by Ivone Rodriguez BSRN via Oral. 20:51:29 HR=84 bpm, JHPS=673/109 mmhg, QxW1=377.0 %, Resp=14 B/min 21:00:57 Patient moved to stretcher 21:03:37 Sterile dressing applied to site 21:03:38 No case complications noted. 21:03:40 Cine recording checked. 21:03:44 Bedside Report will be given. 21:03:45 Implantable Device card placed in patient's chart. 21:03:47 Contrast Scanned 21:03:51 A Left Heart Cath was performed. End Study - Contrast Media Used In Study Contrast Total Opened (mL) Total Used (mL) Total Wasted (mL) Omnipaque 265 265 0 End Study - Maximum Contrast Load Max Contrast Load (mL) 690.0 End Study - Radiation Exposure Fluoro Time (minutes) 39.5 End Study - Sheaths Sheaths Pulled By Sheath Hold Time (min) Kathleen Lagos End Study - Patient Disposition Complications Transferred To Interventional Outcome No Telemetry Bed successful
[2016-11-23 22:00] VITALS: PULSE 76
[2016-11-23] MEDS ORDERED: TEMAZEPAM 15 MG CAP PO PRN (22:00)
[2016-11-23] MEDS ORDERED: MISC INFORMATION XX ONE (22:00)
[2016-11-23] MEDS ORDERED: SODIUM CHLOR 0.9% 250 ML INJ 250 ML IV PRN (22:00)
[2016-11-23] MEDS: SODIUM CHLORIDE 0.9% FLUSH 10 ML FLUSH IV FLUSH SCH (22:34)
[2016-11-23] MEDS: CARVEDILOL 6.25 MG TAB PO SCH (22:35)
[2016-11-23] MEDS: DOCUSATE SODIUM 50 MG/SENNA 8.6 MG TAB PO SCH (22:35)
[2016-11-23] MEDS: ISOSORBIDE MONONITRATE 30 MG TAB PO SCH (22:35)
[2016-11-23] MEDS: ATORVASTATIN 40 MG TAB PO SCH (22:36)
[2016-11-23 23:00] VITALS: BP 152/85; PULSE 68; PULSE 72; RESP 20; TEMP 98.1; O2SAT 95
--- NOTE | 2016-11-23 23:30 | HHI.HP ---
HPI Service [facility] Primary Care Physician Non-Staff Admission Diagnosis NSTEMI Diagnoses: Chief Complaint: chest pain Travel History International Travel<30 Days: Yes Contact w/Intl Traveler <30 Da: Yes Name of Country Traveled to: [place] Traveled to Known Affected Are: No History of Present Illness Written by Imani Reaves, acting as scribe for [Kenny] on 11/23/16 at 23:20. 51 y/o male with a history of gerd, htn, hld, dm and cad presented to the ED with complaints of chest pain. Patient states he has been having intermittent, tightening Chest pain with indigestion, with radiation to his jaw and arm, and associated symptoms include nausea, but no vomiting for the last 2 days. He also states he has been having intermittent headaches but has been under a lot of stress. He denies any sob, fevers or chills. 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 Review of Systems Except as stated in HPI: all other systems reviewed are Neg Past Family Social History Past Medical History gerd htn hld dm, diet controlled cad Past Surgical History Cath 1990s no intervention Reported Medications Reported Meds & Active Scripts Active Reported Aspirin 81 Mg Chew 81 Mg CHEW DAILY Prilosec (Omeprazole Magnesium) 20 Mg Tab 1 Tab PO DAILY Ranitidine (Ranitidine HCl) 300 Mg Tab 300 Mg PO DAILY Metformin (Metformin HCl) 1,000 Mg Tab 1,000 Mg PO BIDPC With meals Lovastatin 20 Mg Tab 20 Mg PO DAILY Amlodipine (Amlodipine Besylate) 5 Mg Tab 5 Mg PO DAILY Lisinopril 20 Mg Tab 20 Mg PO DAILY Allergies: Coded Allergies: No Known Allergies (Verified Allergy, Unknown, 11/23/16) Active Ordered Medications Current Medications Medications (Trade) Dose Ordered Sig/Demetra Route Start Time Stop Time Status Last Admin (NS Flush) 2 ml UNSCH PRN IV FLUSH 11/23/16 18:30 (NS Flush) 2 ml BID IV FLUSH 11/23/16 21:00 11/23/16 22:34 (Tylenol) 650 mg Q4H PRN PO 11/23/16 18:30 (Zofran Inj) 4 mg Q6H PRN IVP 11/23/16 18:30 (Narcan Inj) 0.4 mg UNSCH PRN IV PUSH 11/23/16 18:30 (Lidia-Colace) 1 tab BID PO 11/23/16 21:00 11/23/16 22:35 (Milk Of Magnesia Liq) 30 ml Q12H PRN PO 11/23/16 18:30 (Senokot) 17.2 mg Q12H PRN PO 11/23/16 18:30 (Dulcolax Supp) 10 mg DAILY PRN RECTAL 11/23/16 18:30 (Lactulose Liq) 30 ml DAILY PRN PO 11/23/16 18:30 Sodium Chloride 1,000 ml @ 100 mls/hr Q10H IV 11/23/16 21:50 11/24/16 01:49 11/23/16 22:35 (Restoril) 15 mg HS PRN PO 11/23/16 22:00 (Aspirin Chew) 81 mg DAILY PO 11/24/16 09:00 Sodium Chloride 250 ml @ 0 mls/hr UNSCH X1 PRN IV 11/23/16 22:00 11/25/16 21:59 (Coreg) 6.25 mg BID PO 11/23/16 22:00 11/23/16 22:35 (Prinivil) 20 mg DAILY PO 11/24/16 09:00 (Lipitor) 80 mg HS PO 11/23/16 22:00 11/23/16 22:36 (Brilinta) 90 mg BID PO 11/24/16 09:00 (Imdur) 30 mg DAILY@07 PO 11/23/16 22:15 11/23/16 22:35 Family History Mom and Dad: Heart disease Brother: [place] before age 40 Social History Tobacco use: Denies Alcohol use: 3-4 beers a day Illicit drug use: Denies Physical Exam Vital Signs Vital Signs Date Time Temp Pulse Resp B/P (MAP) Pulse Ox O2 Delivery O2 Flow Rate FiO2 11/23/16 19:53 72 130/70 11/23/16 18:12 83 19 183/97 (125) 97 11/23/16 16:24 98.4 71 19 152/86 (108) 97 Room Air 11/23/16 15:44 98.4 71 19 152/86 (108) 97 Room Air 11/23/16 15:44 71 19 97 Room Air 11/23/16 15:23 98.4 68 13 159/90 (113) 100 Physical Exam GENERAL: This is a well-nourished, obese patient in no apparent distress. SKIN: No rashes, ecchymoses or lesions. HEAD: Atraumatic. Normocephalic. EYES: Pupils equal round and reactive. ENT: Nose without bleeding, purulent drainage or septal hematoma. NECK: Trachea midline. No JVD or lymphadenopathy. CARDIOVASCULAR: Regular rate and rhythm without murmurs, gallops, or rubs. RESPIRATORY: Clear to auscultation. Breath sounds equal bilaterally. No wheezes , rales, or rhonchi. GASTROINTESTINAL: Abdomen soft, non-tender, nondistended. No hepato-splenomegaly , or palpable masses. No guarding. MUSCULOSKELETAL: Right calf > left. No calf tenderness. NEUROLOGICAL: Awake and alert. Motor and sensory grossly within normal limits. Normal speech. Laboratory Laboratory Tests Test 11/23/16 15:30 11/23/16 22:09 White Blood Count 7.5 Red Blood Count 4.62 Hemoglobin 14.2 Hematocrit 42.5 Mean Corpuscular Volume 91.9 Mean Corpuscular Hemoglobin 30.8 Mean Corpuscular Hemoglobin Concent 33.5 Red Cell Distribution Width 12.8 Platelet Count 273 Mean Platelet Volume 6.9 Neutrophils (%) (Auto) 52.8 Lymphocytes (%) (Auto) 31.1 Monocytes (%) (Auto) 8.2 Eosinophils (%) (Auto) 7.1 Basophils (%) (Auto) 0.8 Neutrophils # (Auto) 3.9 Lymphocytes # (Auto) 2.3 Monocytes # (Auto) 0.6 Eosinophils # (Auto) 0.5 Basophils # (Auto) 0.1 CBC Comment DIFF FINAL Differential Comment Prothrombin Time 10.8 Prothromb Time International Ratio 1.0 Activated Partial Thromboplast Time 27.2 D-Dimer Quantitative (PE/DVT) 0.24 Blood Urea Nitrogen 13 Creatinine 1.00 Random Glucose 202 Calcium Level 9.2 Magnesium Level 1.7 Sodium Level 137 Potassium Level 4.4 Chloride Level 103 Carbon Dioxide Level 27.3 Anion Gap 7 Estimat Glomerular Filtration Rate 79 Total Creatine Kinase 97 Troponin I 0.14 Result Diagram: 11/23/16 1530 11/23/16 1530 Imaging Last Impressions Chest X-Ray 11/23/16 1551 Signed Impressions: Service Date/Time: Wednesday, November 23, 2016 16:22 - CONCLUSION: 1. No acute cardiopulmonary findings identified. MD Pascual Nava VTE Risk Assessment Caprinmerced VTE Risk Assessment: Mod/High Risk (score >= 2) Caprini Risk Assessment Model Point Value = 1 Point Value = 2 Point Value = 3 Point Value = 5 Age 41-60 Minor surgery BMI > 25 kg/m2 Swollen legs Varicose veins or History of unexplained or recurrent spontaneous Oral contraceptives or hormone replacement Sepsis (< 1 month) Serious lung disease, including pneumonia (< 1 month) Abnormal pulmonary function Acute myocardial infarction Congestive heart failure (< 1 month) History of inflammatory bowel disease Medical patient at bed rest Age 61-74 Arthroscopic surgery Major open surgery (> 45 min) Laparoscopic surgery (> 45 min) Malignancy Confined to bed (> 72 hours) Immobilizing plaster cast Central venous access Age >= 75 History of VTE Family history of VTE Factor V Leiden Prothrombin [id number] Lupus anticoagulant Anticardiolipin antibodies Elevated serum homocysteine Heparin-induced thrombocytopenia Other congenital or acquired thrombophilia Stroke (< 1 month) Elective arthroplasty Hip, pelvis, or leg fracture Acute spinal cord injury (< 1 month) Prophylaxis Regimen Total Risk Factor Score Risk Level Prophylaxis Regimen 0-1 Low Early ambulation 2 Moderate Order ONE of the following: *Sequential Compression Device (SCD) *Heparin 5000 units SQ BID 3-4 Higher Order ONE of the following medications: *Heparin 5000 units SQ TID *Enoxaparin/Lovenox 40 mg SQ daily (WT < 150 kg, CrCl > 30 mL/min) *Enoxaparin/Lovenox 30 mg SQ daily (WT < 150 kg, CrCl > 10-29 mL/min) *Enoxaparin/Lovenox 30 mg SQ BID (WT < 150 kg, CrCl > 30 mL/min) AND/OR *Sequential Compression Device (SCD) 5 or more Highest Order ONE of the following medications: *Heparin 5000 units SQ TID (Preferred with Epidurals) *Enoxaparin/Lovenox 40 mg SQ daily (WT < 150 kg, CrCl > 30 mL/min) *Enoxaparin/Lovenox 30 mg SQ daily (WT < 150 kg, CrCl > 10-29 mL/min) *Enoxaparin/Lovenox 30 mg SQ BID (WT < 150 kg, CrCl > 30 mL/min) AND *Sequential Compression Device (SCD) Assessment and Plan Problem List: (1) NSTEMI (non-ST elevated myocardial infarction) ICD Code: I21.4 - Non-ST elevation (NSTEMI) myocardial infarction Status: Acute Assessment and Plan 51 y/o male with a history of gerd, htn, hld, dm and cad presented to the ED with complaints of chest pain. NSTEMI, troponin .14, EKG reviewed and showed SR with RBBB -Cardiac cath with [address] Lagos -Lipid panel ordered, start lipitor 80mg hs per cardiology -Cont bed rest for cath protocol -Cont asa daily -Cont Coreg added by cardiology Right calf > than left, patient has been traveling, r/o dvt -US ordered for am DM, chronic: Accu checks ACHS, hold metformin HTN, chronic: monitor vitals, resume home medications Gerd, chronic: Resume home medications DVT prophylaxis: Brilinta This note was transcribed by scribphilip [Imani Reaves]. I, Dr. Miriam Cox personally performed the history, physical exam, and medical decision making; and confirmed the accuracy of the information in the transcribed note. Authenticated by Dr. Miriam Cox on 11/23/16 at 23:20. Discussed Condition With Patient and patient's Physician Certification 2 Midnight Certification Type: Admission for Inpatient Services Order for Inpatient Services The services are ordered in accordance with Medicare regulations or non- Medicare payer requirements, as applicable. In the case of services not specified as inpatient-only, they are appropriately provided as inpatient services in accordance with the 2-midnight benchmark. Estimated LOS (days): 2 days is the estimated time the patient will need to remain in the hospital, assuming treatment plan goals are met and no additional complications. Post-Hospital Plan: Imani Decker Nov 23, 2016 23:30 Miriam Cox MD Nov 25, 2016 01:09
[2016-11-23] MEDS: ACETAMINOPHEN 325 MG TAB PO PRN (23:43)
[2016-11-23] MEDS ORDERED: GLUCAGON 1 MG/ML VIAL OTHER PRN (23:45)
[2016-11-23] MEDS ORDERED: DEXTROSE 50% IN WATER 50 ML VIAL(D50) IV PRN (23:45)
[2016-11-24] VITALS (24 sets, daily range): BP systolic 102–142; BP diastolic 60–83; PULSE 56–84; RESP 16–18; TEMP 97.5–98.7; O2SAT 95–98
--- NOTE | 2016-11-24 02:58 | RADRPT ---
EXAM DATE/TIME: 11/24/2016 00:23 [facility] COMPARISON: No previous studies available for comparison. INDICATIONS : Bilateral leg swelling. MEDICAL HISTORY : Hypercholesterolemia. Hypertension. Gastroesophageal reflux disease. Coronary artery disease. Diabet es. Depression. SURGICAL HISTORY : Cardiac catheterization. ENCOUNTER: Initial ACUITY: 1 day PAIN SCORE: 3/10 LOCATION: Bilateral legs. TECHNIQUE: Venous ultrasound of the left and right leg was performed from the inguinal ligament to the proximal calf. Real-time, color Doppler and spectral tracing, compression and augmentation techniques were us ed. FINDINGS: RIGHT LEG: There is normal compressibility of the deep venous system from the inguinal region to the proximal ca lf. No echogenic clot is seen in the lumen of the common femoral, femoral, popliteal, and posterior tibial veins. There is a normal response of the venous system to proximal and distal augmentation an d respiration. LEFT LEG: There is normal compressibility of the deep venous system from the inguinal region to the proximal ca lf. No echogenic clot is seen in the lumen of the common femoral, femoral, popliteal, and posterior tibial veins. There is a normal response of the venous system to proximal and distal augmentation an d respiration. CONCLUSION: Normal examination. Nadeem Daly Jr., MD on November 24, 2016 at 1:30 Board Certified Radiologist. This report was verified electronically.
[2016-11-24 03:56] LABS: AUTOMATED NEUTROPHIL # 6.3 TH/MM3 (1.8-7.7); BASOPHIL % 0.3 % (0.0-2.0); EOSINOPHIL # 0.2 TH/MM3 (0-0.4); EOSINOPHIL % 2.7 % (0.0-4.0); HEMATOCRIT 37.3 % (39.0-51.0); HEMO FLAGS DIFF FINAL; LYMPH % 17.7 % (9.0-44.0); LYMPHOCYTE # 1.5 TH/MM3 (1.0-4.8); MEAN CELL VOLUME 91.7 FL (80.0-100.0); MEAN CORPUSCULAR HEMOGLOBIN 31.4 PG (27.0-34.0); MEAN CORPUSCULAR HGB CONC 34.3 % (32.0-36.0); MONO % 7.5 % (0.0-8.0); NEUT % 71.8 % (16.0-70.0); PLATELET COUNT 237 TH/MM3 (150-450); RED BLOOD COUNT 4.07 MIL/MM3 (4.50-5.90); RED CELL DISTRIBUTION WIDTH 12.9 % (11.6-17.2); WHITE BLOOD COUNT 8.7 TH/MM3 (4.0-11.0)
[2016-11-24] MEDS: ISOSORBIDE MONONITRATE 30 MG TAB PO SCH (06:10)
[2016-11-24 06:53] LABS: AUTOMATED NEUTROPHIL # 5.1 TH/MM3 (1.8-7.7); BASOPHIL % 0.3 % (0.0-2.0); EOSINOPHIL # 0.2 TH/MM3 (0-0.4); EOSINOPHIL % 2.6 % (0.0-4.0); HEMATOCRIT 38.4 % (39.0-51.0); HEMO FLAGS DIFF FINAL; LYMPH % 21.5 % (9.0-44.0); LYMPHOCYTE # 1.6 TH/MM3 (1.0-4.8); MEAN CELL VOLUME 92.1 FL (80.0-100.0); MEAN CORPUSCULAR HEMOGLOBIN 30.7 PG (27.0-34.0); MEAN CORPUSCULAR HGB CONC 33.4 % (32.0-36.0); MONO % 6.8 % (0.0-8.0); NEUT % 68.8 % (16.0-70.0); PLATELET COUNT 280 TH/MM3 (150-450); RED BLOOD COUNT 4.17 MIL/MM3 (4.50-5.90); RED CELL DISTRIBUTION WIDTH 12.9 % (11.6-17.2); WHITE BLOOD COUNT 7.5 TH/MM3 (4.0-11.0)
[2016-11-24 07:03] LABS: ANION GAP 9 MEQ/L (5-15); AST (GOT) 30 U/L (15-37); BICARBONATE 25.4 MEQ/L (21.0-32.0); BLOOD UREA NITROGEN 12 MG/DL (7-18); CHLORIDE 101 MEQ/L (98-107); GLOMERULAR FILTRATION RATE 89 ML/MIN (>89); SODIUM (NA) 135 MEQ/L (136-145)
[2016-11-24 07:08] LABS: ALKALINE PHOSPHATASE 54 U/L (45-117); ALT (GPT) 37 U/L (12-78); CREATINE KINASE 190 U/L (39-308); HDL CHOLESTEROL 30.7 MG/DL (40.0-60.0); LDL CHOLESTEROL 75 MG/DL (0-99); TOTAL BILIRUBIN ADULT 0.6 MG/DL (0.2-1.0)
[2016-11-24 07:26] LABS: CKMB 14.5 NG/ML (0.5-3.6)
--- NOTE | 2016-11-24 08:05 | MB ---
cc: ADRIANA SHEPPARD DATE OF CONSULTATION 11/23/2016 REASON FOR CONSULTATION Mr. Chew is a 51-year-old white male with a history of diabetes mellitus, mild coronary disease, cardiac catheterization in , hypertension and dyslipidemia. He presented with substernal chest discomfort and epigastric discomfort which started yesterday while he was driving home. He also has nausea and diaphoresis. He presented to the Emergency Room and was diagnosed with non-ST elevation myocardial function. He continues to have intermittent episodes of chest discomfort. PAST MEDICAL HISTORY 1. Mild coronary disease by cardiac catheterization in 2. Type 2 diabetes mellitus 3. Hypertension 4. Dyslipidemia 5. Obesity MEDICATIONS 1. Aspirin 2. Prilosec 3. Ranitidine 4. Metformin 5. Lovastatin 6. Amlodipine 7. Lisinopril ALLERGIES None SOCIAL HISTORY The patient does not smoke. He does not drink alcohol. He works as a realtor. FAMILY HISTORY Strongly positive for coronary artery disease in multiple family members. REVIEW OF SYSTEMS Otherwise negative. PHYSICAL EXAMINATION Blood pressure 183/97, pulse 72 and regular. HEENT: Negative. NECK: 2+ carotid upstrokes. No bruits. LUNGS: Clear. HEART: Regular with no murmur, gallop or rub. ABDOMEN: Soft. No bruits. EXTREMITIES: Without edema. 2+ positive pulses. NEUROLOGIC: Exam is grossly intact. EKG was reviewed and showed a normal sinus rhythm, normal axis and right bundle-branch block. LABORATORY DATA Hemoglobin 14.2, potassium 4.4, creatinine 1.0, glucose 202, CK 97, troponin 0.14. DIAGNOSIS 1. [id number] myocardial infarction with ongoing ischemia. 2. Coronary artery disease 3. Diabetes mellitus 4. Hypertension 5. Dyslipidemia 6. Obesity DISPOSITION Mr. Chew will undergo emergent cardiac catheterization and coronary intervention. He understands the risks and benefits, and wishes to proceed. MD IVETTE Gonzalez/PARDEEP /9:32 PM /7:49 AM RAMONA
[2016-11-24] MEDS ORDERED: PRAVASTATIN SOD 20 MG TAB PO SCH (09:00)
[2016-11-24] MEDS ORDERED: ASPIRIN 81 MG CHEW TAB CHEW SCH (09:00)
[2016-11-24] MEDS ORDERED: amLODIPine BESYLATE 5 MG TAB PO SCH (09:00)
[2016-11-24] MEDS ORDERED: LISINOPRIL 20 MG TAB PO SCH (09:00)
[2016-11-24] MEDS: ACETAMINOPHEN 325 MG TAB PO PRN (09:07)
[2016-11-24] MEDS: ASPIRIN 81 MG CHEW TAB PO SCH (09:08)
[2016-11-24] MEDS: FAMOTIDINE 20 MG TAB PO SCH (09:08)
[2016-11-24] MEDS: PANTOPRAZOLE SOD 20 MG DELAYED RELEASE TAB PO SCH (09:08)
[2016-11-24] MEDS: DOCUSATE SODIUM 50 MG/SENNA 8.6 MG TAB PO SCH ×2 (09:08→21:39)
[2016-11-24] MEDS: TICAGRELOR 90 MG TAB PO SCH ×2 (09:09→21:38)
[2016-11-24] MEDS: LISINOPRIL 20 MG TAB PO SCH (09:09)
[2016-11-24] MEDS: CARVEDILOL 6.25 MG TAB PO SCH ×2 (09:09→21:39)
[2016-11-24] MEDS: SODIUM CHLORIDE 0.9% FLUSH 10 ML FLUSH IV FLUSH SCH ×2 (09:11→21:38)
[2016-11-24] MEDS: INSULIN ASPART SUPPLEMENTAL SCALE SQ SCH ×4 (09:41→21:00)
--- NOTE | 2016-11-24 13:02 | HHI.PR ---
Subjective Remarks This is a pleasant 51 y/o male with GERD, Hypertension, Hyperlipidemia, DM II, who came to ER with Chest pain Status post Cardiac Cath performed yesterday. stable in his bedroom asking for some NSAIDS he takes Ibuprofen he prefer this medicine to narcotics, seen in the presence of nurse Miss Buitrago and his and another relatives. No nausea, vomit or diarrhea, Objective Vital Signs Date Time Temp Pulse Resp B/P (MAP) Pulse Ox O2 Delivery O2 Flow Rate FiO2 11/24/16 12:08 68 11/24/16 10:00 76 11/24/16 09:00 70 11/24/16 08:00 68 11/24/16 07:00 60 11/24/16 06:00 58 11/24/16 05:00 63 11/24/16 04:00 60 11/24/16 03:00 98.5 63 16 102/60 (74) 96 11/24/16 03:00 58 11/24/16 02:00 60 11/24/16 01:00 62 11/24/16 00:00 70 11/23/16 23:00 68 11/23/16 23:00 98.1 72 20 152/85 (107) 95 11/23/16 22:00 76 11/23/16 19:53 72 130/70 11/23/16 18:12 83 19 183/97 (125) 97 11/23/16 16:24 98.4 71 19 152/86 (108) 97 Room Air 11/23/16 15:44 98.4 71 19 152/86 (108) 97 Room Air 11/23/16 15:44 71 19 97 Room Air 11/23/16 15:23 98.4 68 13 159/90 (113) 100 I/O 11/23/16 11/23/16 11/23/16 11/24/16 11/24/16 11/24/16 07:00 15:00 23:00 07:00 15:00 23:00 Intake Total 1240 ml Output Total 1250 ml Balance -10 ml Intake Oral 840 ml IV Total 400 ml Output Urine Total 1250 ml Result Diagram: 11/24/16 0600 11/24/16 0600 Imaging Last Impressions Lower Extremity Ultrasound 11/23/16 6808 Signed Impressions: Service Date/Time: Thursday, November 24, 2016 00:23 - CONCLUSION: Normal examination. Nadeem Daly Jr., MD Chest X-Ray 11/23/16 1551 Signed Impressions: Service Date/Time: Wednesday, November 23, 2016 16:22 - CONCLUSION: 1. No acute cardiopulmonary findings identified. Jamie Boles MD Procedures Cardiac Cath 11/23/16 Other Results Laboratory Tests Test 11/23/16 15:30 11/24/16 03:12 11/24/16 06:00 Prothrombin Time 10.8 SEC Prothromb Time International Ratio 1.0 RATIO Activated Partial Thromboplast Time 27.2 SEC D-Dimer Quantitative (PE/DVT) 0.24 MG/L FEU Blood Urea Nitrogen 13 MG/DL 12 MG/DL Creatinine 1.00 MG/DL 0.90 MG/DL Random Glucose 202 MG/DL 195 MG/DL Calcium Level 9.2 MG/DL 8.6 MG/DL Magnesium Level 1.7 MG/DL Sodium Level 137 MEQ/L 135 MEQ/L Potassium Level 4.4 MEQ/L 4.0 MEQ/L Chloride Level 103 MEQ/L 101 MEQ/L Carbon Dioxide Level 27.3 MEQ/L 25.4 MEQ/L Troponin I 1.34 NG/ML White Blood Count 7.5 TH/MM3 Red Blood Count 4.17 MIL/MM3 Hemoglobin 12.8 GM/DL Hematocrit 38.4 % Mean Corpuscular Volume 92.1 FL Mean Corpuscular Hemoglobin 30.7 PG Mean Corpuscular Hemoglobin Concent 33.4 % Red Cell Distribution Width 12.9 % Platelet Count 280 TH/MM3 Mean Platelet Volume 7.3 FL Neutrophils (%) (Auto) 68.8 % Lymphocytes (%) (Auto) 21.5 % Monocytes (%) (Auto) 6.8 % Eosinophils (%) (Auto) 2.6 % Basophils (%) (Auto) 0.3 % Neutrophils # (Auto) 5.1 TH/MM3 Lymphocytes # (Auto) 1.6 TH/MM3 Monocytes # (Auto) 0.5 TH/MM3 Eosinophils # (Auto) 0.2 TH/MM3 Basophils # (Auto) 0.0 TH/MM3 CBC Comment DIFF FINAL Differential Comment Total Protein 6.5 GM/DL Albumin 3.4 GM/DL Alkaline Phosphatase 54 U/L Aspartate Amino Transf (AST/SGOT) 30 U/L Alanine Aminotransferase (ALT/SGPT) 37 U/L Total Bilirubin 0.6 MG/DL Anion Gap 9 MEQ/L Estimat Glomerular Filtration Rate 89 ML/MIN Total Creatine Kinase 190 U/L Creatine Kinase MB 14.5 NG/ML Triglycerides Level 181 MG/DL Cholesterol Level 142 MG/DL LDL Cholesterol 75 MG/DL HDL Cholesterol 30.7 MG/DL Cholesterol/HDL Ratio 4.62 RATIO Objective Remarks GENERAL: Obese patient in no acute distress. SKIN: No rashes, ecchymoses or lesions. HEAD: Atraumatic. Normocephalic. EYES: Pupils equal round and reactive. ENT: Nose without bleeding, purulent drainage or septal hematoma. NECK: Trachea midline. No JVD or lymphadenopathy. CARDIOVASCULAR: Regular rate and rhythm without murmurs, gallops, or rubs. RESPIRATORY: Clear to auscultation. Breath sounds equal bilaterally. No wheezes , rales, or rhonchi. GASTROINTESTINAL: Abdomen soft, non-tender, nondistended. No hepato-splenomegaly , or palpable masses. No guarding. MUSCULOSKELETAL: No clubbing cyanosis or edema. NEUROLOGICAL: Awake and alert. Motor and sensory grossly within normal limits. Normal speech. Medications and IVs Current Medications Medications (Trade) Dose Ordered Sig/Demetra Route Start Time Stop Time Status Last Admin (NS Flush) 2 ml UNSCH PRN IV FLUSH 11/23/16 18:30 (NS Flush) 2 ml BID IV FLUSH 11/23/16 21:00 11/24/16 09:11 (Tylenol) 650 mg Q4H PRN PO 11/23/16 18:30 11/24/16 09:07 (Zofran Inj) 4 mg Q6H PRN IVP 11/23/16 18:30 (Narcan Inj) 0.4 mg UNSCH PRN IV PUSH 11/23/16 18:30 (Lidia-Colace) 1 tab BID PO 11/23/16 21:00 11/24/16 09:08 (Milk Of Magnesia Liq) 30 ml Q12H PRN PO 11/23/16 18:30 (Senokot) 17.2 mg Q12H PRN PO 11/23/16 18:30 (Dulcolax Supp) 10 mg DAILY PRN RECTAL 11/23/16 18:30 (Lactulose Liq) 30 ml DAILY PRN PO 11/23/16 18:30 (Restoril) 15 mg HS PRN PO 11/23/16 22:00 (Aspirin Chew) 81 mg DAILY PO 11/24/16 09:00 11/24/16 09:08 Sodium Chloride 250 ml @ 0 mls/hr UNSCH X1 PRN IV 11/23/16 22:00 11/25/16 21:59 (Coreg) 6.25 mg BID PO 11/23/16 22:00 11/24/16 09:09 (Prinivil) 20 mg DAILY PO 11/24/16 09:00 11/24/16 09:09 (Lipitor) 80 mg HS PO 11/23/16 22:00 11/23/16 22:36 (Brilinta) 90 mg BID PO 11/24/16 09:00 11/24/16 09:09 (Imdur) 30 mg DAILY@07 PO 11/23/16 22:15 11/24/16 06:10 (D50w (Vial) Inj) 50 ml UNSCH PRN IV 11/23/16 23:45 (Glucagon Inj) 1 mg UNSCH PRN OTHER 11/23/16 23:45 (NovoLOG SUPPLEMENTAL SCALE) 1 ACHS SLIDING SCALE SQ 11/24/16 08:00 11/24/16 09:41 (Protonix) 20 mg DAILY PO 11/24/16 09:00 11/24/16 09:08 (Pepcid) 40 mg DAILY PO 11/24/16 09:00 11/24/16 09:08 A/P Assessment and Plan 51 y/o male with a history of gerd, htn, hld, dm and cad presented to the ED with complaints of chest pain. NSTEMI, troponin .14, EKG reviewed and showed SR with RBBB -Cardiac cath with [address] Lagos -Lipid panel ordered, start Lipitor 80mg hs per cardiology -Continue Cardiac Cath protocol, Aspirin, Coreg and Brilinta. Right calf > than left, patient has been traveling, ruled out DVT. DM, chronic: Accu checks ACHS, hold metformin HTN, chronic: CONTROLLED. Gerd, chronic: Resume home medications Headache the patient states he does not want any Narcotics asked for Ibuprofen. DVT prophylaxis: Dutch Discussed Condition With Patient Nurse and relatives in the room. all questions answered to the best of my abilities. Discharge Planning Expected by tomorrow. Bassem Carlson MD Nov 24, 2016 13:02
--- NOTE | 2016-11-24 14:10 | EKG ---
Date Performed: 11/23/2016 Time Performed: 23:50:00 PTAGE: 51 years EKG: Sinus rhythm Right bundle branch block Possible inferior infarct - age undetermined Compared to prior tracing no significant change Abnormal ECG PREVIOUS TRACING : 11/23/2016 15.29 DOCTOR: Shilo Kaye Interpretating Date/Time 11/24/2016 14:07:54
--- NOTE | 2016-11-24 14:10 | EKG ---
Date Performed: 11/24/2016 Time Performed: 05:48:54 PTAGE: 51 years EKG: Sinus rhythm Right bundle branch block Inferior infarct - age undetermined Lateral ST-T changes are nonspecific C ompared to prior tracing no significant change Abnormal ECG PREVIOUS TRACING : 11/23/2016 23.50 DOCTOR: Shilo Kaye Interpretating Date/Time 11/24/2016 14:07:27
--- NOTE | 2016-11-24 14:11 | EKG ---
Date Performed: 11/23/2016 Time Performed: 15:29:35 PTAGE: 51 years EKG: Sinus rhythm RIGHT BUNDLE BRANCH BLOCK ABNORMAL ECG NO PREVIOUS TRACING DOCTOR: Shilo Kaye Interpretating Date/Time 11/24/2016 14:08:01
[2016-11-24] MEDS: IBUPROFEN 800 MG TAB PO PRN (16:53)
--- NOTE | 2016-11-24 16:57 | PD.CARD.PN ---
Subjective Subjective Remarks No CP, SOB, feels much better Objective Vital Signs / I&O Vital Signs Date Time Temp Pulse Resp B/P (MAP) Pulse Ox O2 Delivery O2 Flow Rate FiO2 11/24/16 16:00 70 11/24/16 15:43 62 11/24/16 15:00 98.1 79 17 138/83 (101) 97 11/24/16 15:00 74 11/24/16 14:00 56 11/24/16 12:08 68 11/24/16 12:00 98.2 79 16 124/69 (87) 95 11/24/16 12:00 84 11/24/16 10:00 76 11/24/16 09:00 70 11/24/16 08:00 97.5 71 16 117/65 (82) 98 11/24/16 08:00 68 11/24/16 07:00 60 11/24/16 06:00 58 11/24/16 05:00 63 11/24/16 04:00 60 11/24/16 03:00 98.5 63 16 102/60 (74) 96 11/24/16 03:00 58 11/24/16 02:00 60 11/24/16 01:00 62 11/24/16 00:00 70 11/23/16 23:00 68 11/23/16 23:00 98.1 72 20 152/85 (107) 95 11/23/16 22:00 76 11/23/16 19:53 72 130/70 11/23/16 18:12 83 19 183/97 (125) 97 I/O 11/23/16 11/23/16 11/23/16 11/24/16 11/24/16 11/24/16 06:59 14:59 22:59 06:59 14:59 22:59 Intake Total 1240 ml Output Total 1250 ml Balance -10 ml Intake Oral 840 ml IV Total 400 ml Output Urine Total 1250 ml Physical Exam GENERAL: In NAD SKIN: Warm and dry. HEAD: Normocephalic. EYES: No scleral icterus. No injection or drainage. NECK: Supple, trachea midline. No JVD or lymphadenopathy. CARDIOVASCULAR: Regular rate and rhythm without murmurs, gallops, or rubs. RESPIRATORY: Breath sounds equal bilaterally. No accessory muscle use. GASTROINTESTINAL: Abdomen soft, non-tender, nondistended. MUSCULOSKELETAL: No cyanosis, or edema. Groin stable Laboratory Laboratory Tests Test 11/23/16 22:09 11/24/16 03:12 11/24/16 06:00 Total Creatine Kinase 137 U/L 123 U/L 190 U/L Troponin I 0.32 NG/ML 1.34 NG/ML White Blood Count 8.7 TH/MM3 7.5 TH/MM3 Red Blood Count 4.07 MIL/MM3 4.17 MIL/MM3 Hemoglobin 12.8 GM/DL 12.8 GM/DL Hematocrit 37.3 % 38.4 % Mean Corpuscular Volume 91.7 FL 92.1 FL Mean Corpuscular Hemoglobin 31.4 PG 30.7 PG Mean Corpuscular Hemoglobin Concent 34.3 % 33.4 % Red Cell Distribution Width 12.9 % 12.9 % Platelet Count 237 TH/MM3 280 TH/MM3 Mean Platelet Volume 7.2 FL 7.3 FL Neutrophils (%) (Auto) 71.8 % 68.8 % Lymphocytes (%) (Auto) 17.7 % 21.5 % Monocytes (%) (Auto) 7.5 % 6.8 % Eosinophils (%) (Auto) 2.7 % 2.6 % Basophils (%) (Auto) 0.3 % 0.3 % Neutrophils # (Auto) 6.3 TH/MM3 5.1 TH/MM3 Lymphocytes # (Auto) 1.5 TH/MM3 1.6 TH/MM3 Monocytes # (Auto) 0.7 TH/MM3 0.5 TH/MM3 Eosinophils # (Auto) 0.2 TH/MM3 0.2 TH/MM3 Basophils # (Auto) 0.0 TH/MM3 0.0 TH/MM3 CBC Comment DIFF FINAL DIFF FINAL Differential Comment Blood Urea Nitrogen 12 MG/DL Creatinine 0.90 MG/DL Random Glucose 195 MG/DL Total Protein 6.5 GM/DL Albumin 3.4 GM/DL Calcium Level 8.6 MG/DL Alkaline Phosphatase 54 U/L Aspartate Amino Transf (AST/SGOT) 30 U/L Alanine Aminotransferase (ALT/SGPT) 37 U/L Total Bilirubin 0.6 MG/DL Sodium Level 135 MEQ/L Potassium Level 4.0 MEQ/L Chloride Level 101 MEQ/L Carbon Dioxide Level 25.4 MEQ/L Anion Gap 9 MEQ/L Estimat Glomerular Filtration Rate 89 ML/MIN Creatine Kinase MB 14.5 NG/ML Triglycerides Level 181 MG/DL Cholesterol Level 142 MG/DL LDL Cholesterol 75 MG/DL HDL Cholesterol 30.7 MG/DL Cholesterol/HDL Ratio 4.62 RATIO Assessment and Plan Problem List: (1) NSTEMI (non-ST elevated myocardial infarction) ICD Codes: I21.4 - Non-ST elevation (NSTEMI) myocardial infarction Status: Acute (2) CAD (coronary artery disease) ICD Codes: I25.10 - Atherosclerotic heart disease of [place] coronary artery without angina pectoris (3) Ischemic cardiomyopathy ICD Codes: I25.5 - Ischemic cardiomyopathy (4) DM (diabetes mellitus) ICD Codes: E11.9 - Type 2 diabetes mellitus without complications (5) Stented coronary artery ICD Codes: Z95.5 - Presence of coronary angioplasty implant and graft Assessment and Plan Continue Brilinta and baby ASA. Continue post [place] care including beta lee. Aggressive risk factor modification. Increase activity. Continue monitoring on telemetry. Kathleen Lagos MD Nov 24, 2016 16:57
[2016-11-24] MEDS: ATORVASTATIN 40 MG TAB PO SCH (21:39)
[2016-11-25] VITALS (14 sets, daily range): BP systolic 116–141; BP diastolic 69–82; PULSE 54–82; RESP 16–18; TEMP 97.5–97.8; O2SAT 95–96
[2016-11-25] MEDS: ISOSORBIDE MONONITRATE 30 MG TAB PO SCH (06:14)
--- NOTE | 2016-11-25 07:35 | MA ---
cc: ADRIANA SHEPPARD DATE 11/23/2016 INDICATION Acute non-ST elevation myocardial infarction, class IV angina, cardiomyopathy, diabetes mellitus. PROCEDURE PERFORMED 1. Retrograde left heart catheterization with left ventriculography and selective angiography 2. Rotational atherectomy of the right coronary 3. Angioplasty and stenting of the right coronary artery ACCESS SITE Right femoral artery EQUIPMENT USED 5-Maldivian pigtail, 5-Maldivian JL-4 and AR modified coronary artery. AL-1 guide, BMW wire, CSII zuly back rotational atherectomy device on low and high RPM. The right coronary was extremely calcified and even small balloon would not to easily pass the proximal and mid part of the vessel due to heavy calcification prior to the atherectomy. A 2.5 x 12 meters balloon, 3.0 x 30 mm Eder stented 18 atmospheres, 3.0 x 30 mm [place] to 18 atmospheres and 3.5 x 34 mm Eder at 12 atmospheres. CONTRAST Omnipaque 265 cc MEDICATIONS 1. Versed IV 2. Fentanyl IV 3. Heparin IV 4. Nitroglycerin IC 5. Nipride 6. Nitroprusside IC 7. Brilinta 180 mg p.o. COMPLICATIONS None BLOOD LOSS Less than 10 cc. METHOD OF HEMOSTASIS Angio-Seal closure RESULTS HEMODYNAMICS Heart rate 70 beats per minute. Left ventricular end-diastolic pressure 7 mmHg. LEFT VENTRICLE Aorta 110/47/83 LEFT VENTRICULOGRAPHY Ejection fraction of 45%. Wall motion inferior hypokinesis. CORONARY ANGIOGRAPHY The left main coronary artery is patent. The left anterior descending artery has 20% in the midportion. D1 has 99% ostial stenosis and fills by [id number] collaterals. Fills also bilateral . D2 is patent. The left circumflex artery is patent. OM-1 patent. The ramus intermedius has 60% stenosis in two secondary branches. The right coronary artery is a large dominant vessel which has 75% stenosis in the midportion which is heavily calcified and there is 99% stenosis in the distal portion which is heavily calcified. PDA patent. PLV patent. The stenosis in the right coronary artery total length is 70 mm, pre-AMBAR flow II, post-AMBAR flow III, post AMBAR-III is 0. Post intervention angiography has excellent patency of the stented segment and no evidence of dissection, thrombosis or distal embolization. DIAGNOSIS 1. Acute non-ST elevation myocardial function with ongoing ischemia. 2. Severe multivessel coronary artery disease. 3. Mild left ventricular dysfunction consistent with ischemic cardiomyopathy. 4. Successful atherectomy, angioplasty and stenting of the right coronary artery. DISPOSITION Mr. Chew will continue long-term therapy with Brilinta and aspirin. He will also continue aggressive modification of his cardiac risk factors. He will be monitored on telemetry. His serial enzymes will be continued on telemetry. I will see him back for followup in our office after discharge. MD IVETTE Gonzalez/DJL /9:24 PM /7:00 AM
[2016-11-25] MEDS: INSULIN ASPART SUPPLEMENTAL SCALE SQ SCH ×2 (08:00→12:42)
[2016-11-25] MEDS: LISINOPRIL 20 MG TAB PO SCH (08:17)
[2016-11-25] MEDS: CARVEDILOL 6.25 MG TAB PO SCH (08:17)
[2016-11-25] MEDS: DOCUSATE SODIUM 50 MG/SENNA 8.6 MG TAB PO SCH (08:18)
[2016-11-25] MEDS: FAMOTIDINE 20 MG TAB PO SCH (08:18)
[2016-11-25] MEDS: PANTOPRAZOLE SOD 20 MG DELAYED RELEASE TAB PO SCH (08:18)
[2016-11-25] MEDS: TICAGRELOR 90 MG TAB PO SCH (08:18)
[2016-11-25] MEDS: ASPIRIN 81 MG CHEW TAB PO SCH (08:18)
[2016-11-25] MEDS: SODIUM CHLORIDE 0.9% FLUSH 10 ML FLUSH IV FLUSH SCH (08:20)
[2016-11-25] MEDS: IBUPROFEN 800 MG TAB PO PRN (08:44)
--- NOTE | 2016-11-25 11:26 | PD.CARD.PN ---
Subjective Subjective Remarks No CP, difficulty to take a breath, no edema Objective Medications Active Medications Ibuprofen (Motrin) 800 mg Q8H PRN PO Last administered on 11/25/16t 08:44; Admin Dose 800 MG; Start 11/24/16 at 15:00 Prasugrel (Effient) 10 mg DAILY PO; Start 11/26/16 at 09:00; Status UNV Prasugrel (Effient) 60 mg ONCE ONCE PO; Start 11/25/16 at 11:30; Stop 11/25/16 at 11:31; Status UNV Vital Signs / I&O Vital Signs Date Time Temp Pulse Resp B/P (MAP) Pulse Ox O2 Delivery O2 Flow Rate FiO2 11/25/16 11:00 66 11/25/16 11:00 97.8 66 16 141/82 (101) 96 11/25/16 10:00 70 11/25/16 09:00 70 11/25/16 08:00 82 11/25/16 07:00 97.5 67 16 116/75 (89) 95 11/25/16 07:00 67 11/25/16 06:00 54 11/25/16 05:00 69 11/25/16 04:00 72 11/25/16 03:00 60 11/25/16 03:00 97.8 63 18 122/69 (86) 96 11/25/16 02:07 64 11/25/16 01:00 64 11/25/16 00:00 62 11/24/16 23:00 64 11/24/16 23:00 98.4 62 16 129/73 (91) 95 11/24/16 22:00 70 11/24/16 21:00 70 11/24/16 20:00 66 11/24/16 19:00 72 11/24/16 19:00 98.7 67 18 142/78 (99) 95 11/24/16 18:00 65 11/24/16 17:00 62 11/24/16 16:00 70 11/24/16 15:43 62 11/24/16 15:00 98.1 79 17 138/83 (101) 97 11/24/16 15:00 74 11/24/16 14:00 56 11/24/16 12:08 68 11/24/16 12:00 98.2 79 16 124/69 (87) 95 11/24/16 12:00 84 I/O 11/24/16 11/24/16 11/24/16 11/25/16 11/25/16 11/25/16 07:00 15:00 23:00 07:00 15:00 23:00 Intake Total 1240 ml 800 ml 480 ml Output Total 1250 ml Balance -10 ml 800 ml 480 ml Intake Oral 840 ml 800 ml 480 ml IV Total 400 ml Output Urine Total 1250 ml # Voids 5 2 Physical Exam GENERAL: In NAD SKIN: Warm and dry. HEAD: Normocephalic. EYES: No scleral icterus. No injection or drainage. NECK: Supple, trachea midline. No JVD or lymphadenopathy. CARDIOVASCULAR: Regular rate and rhythm without murmurs, gallops, or rubs. RESPIRATORY: Breath sounds equal bilaterally. No accessory muscle use. GASTROINTESTINAL: Abdomen soft, non-tender, nondistended. MUSCULOSKELETAL: No cyanosis, or edema. Groin stable Assessment and Plan Problem List: (1) NSTEMI (non-ST elevated myocardial infarction) ICD Codes: I21.4 - Non-ST elevation (NSTEMI) myocardial infarction Status: Acute (2) CAD (coronary artery disease) ICD Codes: I25.10 - Atherosclerotic heart disease of [place] coronary artery without angina pectoris (3) Ischemic cardiomyopathy ICD Codes: I25.5 - Ischemic cardiomyopathy (4) DM (diabetes mellitus) ICD Codes: E11.9 - Type 2 diabetes mellitus without complications (5) Stented coronary artery ICD Codes: Z95.5 - Presence of coronary angioplasty implant and graft Assessment and Plan SOB likely secondary to Brilinta, will switch to Effient, continue baby ASA. Continue post [place] care including beta lee, CARL-I, statin. Aggressive risk factor modification. Increase activity. DC home. Will schedule outpatient f/u within 2 weeks. Kathleen Lagos MD Nov 25, 2016 11:26
[2016-11-25] MEDS ORDERED: PRASUGREL 10 MG TAB PO ONE (11:30)
--- NOTE | 2016-11-25 12:48 | HHI.PR ---
Subjective Remarks This is a pleasant 51 y/o male with GERD, Hypertension, Hyperlipidemia, DM II, who came to ER with Chest pain Status post Cardiac Cath performed yesterday. stable in his bedroom asking for some NSAIDS he takes Ibuprofen he prefer this medicine to narcotics, seen in the presence of nurse Minna and his and another relatives. 11/25; Seen in his bedroom and discussed with nurse Binu, no nausea, vomit or diarrhea, he had some Shortness of breath secondary to Brilinta and switch to Effient by credit specialist and recommended for discharge Objective Vital Signs Date Time Temp Pulse Resp B/P (MAP) Pulse Ox O2 Delivery O2 Flow Rate FiO2 11/25/16 12:00 60 11/25/16 11:00 66 11/25/16 11:00 97.8 66 16 141/82 (101) 96 11/25/16 10:00 70 11/25/16 09:00 70 11/25/16 08:00 82 11/25/16 07:00 97.5 67 16 116/75 (89) 95 11/25/16 07:00 67 11/25/16 06:00 54 11/25/16 05:00 69 11/25/16 04:00 72 11/25/16 03:00 60 11/25/16 03:00 97.8 63 18 122/69 (86) 96 11/25/16 02:07 64 11/25/16 01:00 64 11/25/16 00:00 62 11/24/16 23:00 64 11/24/16 23:00 98.4 62 16 129/73 (91) 95 11/24/16 22:00 70 11/24/16 21:00 70 11/24/16 20:00 66 11/24/16 19:00 72 11/24/16 19:00 98.7 67 18 142/78 (99) 95 11/24/16 18:00 65 11/24/16 17:00 62 11/24/16 16:00 70 11/24/16 15:43 62 11/24/16 15:00 98.1 79 17 138/83 (101) 97 11/24/16 15:00 74 11/24/16 14:00 56 I/O 11/24/16 11/24/16 11/24/16 11/25/1617 9/20/17 07:00 15:00 23:00 07:00 15:00 23:00 Intake Total 1240 ml 800 ml 480 ml Output Total 1250 ml Balance -10 ml 800 ml 480 ml Intake Oral 840 ml 800 ml 480 ml IV Total 400 ml Output Urine Total 1250 ml # Voids 5 2 Result Diagram: 11/24/16 0600 11/24/16 0600 Imaging Last Impressions Lower Extremity Ultrasound 11/23/16 2335 Signed Impressions: Service Date/Time: Thursday, November 24, 2016 00:23 - CONCLUSION: Normal examination. Nadeem Daly Jr., MD Chest X-Ray 11/23/16 1551 Signed Impressions: Service Date/Time: Wednesday, November 23, 2016 16:22 - CONCLUSION: 1. No acute cardiopulmonary findings identified. Jamie Boles MD Procedures Cardiac Cath 11/23/16 Other Results Laboratory Tests Test 11/23/16 15:30 11/24/16 03:12 11/24/16 06:00 Prothrombin Time 10.8 SEC Prothromb Time International Ratio 1.0 RATIO Activated Partial Thromboplast Time 27.2 SEC D-Dimer Quantitative (PE/DVT) 0.24 MG/L FEU Blood Urea Nitrogen 13 MG/DL 12 MG/DL Creatinine 1.00 MG/DL 0.90 MG/DL Random Glucose 202 MG/DL 195 MG/DL Calcium Level 9.2 MG/DL 8.6 MG/DL Magnesium Level 1.7 MG/DL Sodium Level 137 MEQ/L 135 MEQ/L Potassium Level 4.4 MEQ/L 4.0 MEQ/L Chloride Level 103 MEQ/L 101 MEQ/L Carbon Dioxide Level 27.3 MEQ/L 25.4 MEQ/L Troponin I 1.34 NG/ML White Blood Count 7.5 TH/MM3 Red Blood Count 4.17 MIL/MM3 Hemoglobin 12.8 GM/DL Hematocrit 38.4 % Mean Corpuscular Volume 92.1 FL Mean Corpuscular Hemoglobin 30.7 PG Mean Corpuscular Hemoglobin Concent 33.4 % Red Cell Distribution Width 12.9 % Platelet Count 280 TH/MM3 Mean Platelet Volume 7.3 FL Neutrophils (%) (Auto) 68.8 % Lymphocytes (%) (Auto) 21.5 % Monocytes (%) (Auto) 6.8 % Eosinophils (%) (Auto) 2.6 % Basophils (%) (Auto) 0.3 % Neutrophils # (Auto) 5.1 TH/MM3 Lymphocytes # (Auto) 1.6 TH/MM3 Monocytes # (Auto) 0.5 TH/MM3 Eosinophils # (Auto) 0.2 TH/MM3 Basophils # (Auto) 0.0 TH/MM3 CBC Comment DIFF FINAL Differential Comment Total Protein 6.5 GM/DL Albumin 3.4 GM/DL Alkaline Phosphatase 54 U/L Aspartate Amino Transf (AST/SGOT) 30 U/L Alanine Aminotransferase (ALT/SGPT) 37 U/L Total Bilirubin 0.6 MG/DL Anion Gap 9 MEQ/L Estimat Glomerular Filtration Rate 89 ML/MIN Total Creatine Kinase 190 U/L Creatine Kinase MB 14.5 NG/ML Triglycerides Level 181 MG/DL Cholesterol Level 142 MG/DL LDL Cholesterol 75 MG/DL HDL Cholesterol 30.7 MG/DL Cholesterol/HDL Ratio 4.62 RATIO Objective Remarks GENERAL: Obese patient in no acute distress. SKIN: No rashes, ecchymoses or lesions. HEAD: Atraumatic. Normocephalic. EYES: Pupils equal round and reactive. ENT: Nose without bleeding, purulent drainage or septal hematoma. NECK: Trachea midline. No JVD or lymphadenopathy. CARDIOVASCULAR: Regular rate and rhythm without murmurs, gallops, or rubs. RESPIRATORY: Clear to auscultation. Breath sounds equal bilaterally. No wheezes , rales, or rhonchi. GASTROINTESTINAL: Abdomen soft, non-tender, nondistended. No hepato-splenomegaly , or palpable masses. No guarding. MUSCULOSKELETAL: No clubbing cyanosis or edema. NEUROLOGICAL: Awake and alert. Motor and sensory grossly within normal limits. Normal speech. Medications and IVs Current Medications Medications (Trade) Dose Ordered Sig/Demetra Route Start Time Stop Time Status Last Admin (NS Flush) 2 ml UNSCH PRN IV FLUSH 11/23/16 18:30 (NS Flush) 2 ml BID IV FLUSH 11/23/16 21:00 11/25/16 08:20 (Tylenol) 650 mg Q4H PRN PO 11/23/16 18:30 11/24/16 09:07 (Zofran Inj) 4 mg Q6H PRN IVP 11/23/16 18:30 (Narcan Inj) 0.4 mg UNSCH PRN IV PUSH 11/23/16 18:30 (Lidia-Colace) 1 tab BID PO 11/23/16 21:00 11/25/16 08:18 (Milk Of Magnesia Liq) 30 ml Q12H PRN PO 11/23/16 18:30 (Senokot) 17.2 mg Q12H PRN PO 11/23/16 18:30 (Dulcolax Supp) 10 mg DAILY PRN RECTAL 11/23/16 18:30 (Lactulose Liq) 30 ml DAILY PRN PO 11/23/16 18:30 (Restoril) 15 mg HS PRN PO 11/23/16 22:00 (Aspirin Chew) 81 mg DAILY PO 11/24/16 09:00 11/25/16 08:18 Sodium Chloride 250 ml @ 0 mls/hr UNSCH X1 PRN IV 11/23/16 22:00 11/25/16 21:59 (Coreg) 6.25 mg BID PO 11/23/16 22:00 11/25/16 08:17 (Prinivil) 20 mg DAILY PO 11/24/16 09:00 11/25/16 08:17 (Lipitor) 80 mg HS PO 11/23/16 22:00 11/24/16 21:39 (Imdur) 30 mg DAILY@07 PO 11/23/16 22:15 11/25/16 06:14 (D50w (Vial) Inj) 50 ml UNSCH PRN IV 11/23/16 23:45 (Glucagon Inj) 1 mg UNSCH PRN OTHER 11/23/16 23:45 (NovoLOG SUPPLEMENTAL SCALE) 1 ACHS SLIDING SCALE SQ 11/24/16 08:00 11/25/16 12:42 (Protonix) 20 mg DAILY PO 11/24/16 09:00 11/25/16 08:18 (Pepcid) 40 mg DAILY PO 11/24/16 09:00 11/25/16 08:18 (Motrin) 800 mg Q8H PRN PO 11/24/16 15:00 11/25/16 08:44 (Effient) 10 mg DAILY PO 11/26/16 09:00 A/P Assessment and Plan 51 y/o male with a history of gerd, htn, hld, dm and cad presented to the ED with complaints of chest pain. NSTEMI, troponin .14, EKG reviewed and showed SR with RBBB -Cardiac cath with [address] Lagos -Lipid panel ordered, start Lipitor 80mg hs per cardiology -Continue Cardiac Cath protocol, Aspirin, Coreg, Brilinta was switched to Effient due to SOB Right calf > than left, patient has been traveling, ruled out DVT. DM, chronic: Accu checks ACHS, hold metformin, will continue home medicines on discharge. except for metformin to re start tomorrow. HTN, chronic: CONTROLLED. Gerd, chronic: Resume home medications Headache Improved. DVT prophylaxis: Brilinta Discussed Condition With Patient, Nurse miss Schmid. all questions answered to the best of my abilities. Discharge Planning Discharge Home. Bassem Carlson MD Nov 25, 2016 12:48
[2016-11-25] MEDS ORDERED: PRAS10TA PO (13:04)
[2016-11-25] MEDS ORDERED: ISOS30TA3 PO (13:04)
[2016-11-25] MEDS ORDERED: ATOR40TA16 PO (13:04)
[2016-11-25] MEDS ORDERED: CARV6.25 PO (13:04)
--- NOTE | 2016-11-25 13:11 | HHI.DS ---
Discharge Summary Admission Date Nov 23, 2016 at 23:13 Discharge Date: Nov 25, 2016 Admitting Diagnosis NSTEMI (1) NSTEMI (non-ST elevated myocardial infarction) ICD Code: I21.4 - Non-ST elevation (NSTEMI) myocardial infarction Diagnosis: Principal Status: Acute Procedures Cardiac Catheterization Brief History - From Admission Written by Imani Reaves, acting as scribe for [Kenny] on 11/23/16 at 23:20. 51 y/o male with a history of gerd, htn, hld, dm and cad presented to the ED with complaints of chest pain. Patient states he has been having intermittent, tightening Chest pain with indigestion, with radiation to his jaw and arm, and associated symptoms include nausea, but no vomiting for the last 2 days. He also states he has been having intermittent headaches but has been under a lot of stress. He denies any sob, fevers or chills. 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 CBC/BMP: 11/24/16 0600 11/24/16 0600 Significant Findings Laboratory Tests Test 11/23/16 15:30 11/23/16 22:09 11/24/16 03:12 11/24/16 06:00 Mean Platelet Volume 6.9 FL (7.0-11.0) Monocytes (%) (Auto) 8.2 % (0.0-8.0) Eosinophils (%) (Auto) 7.1 % (0.0-4.0) Eosinophils # (Auto) 0.5 TH/MM3 (0-0.4) Random Glucose 202 MG/DL (74-106) 195 MG/DL (74-106) Estimat Glomerular Filtration Rate 79 ML/MIN (>89) Troponin I 0.14 NG/ML (0.02-0.05) 0.32 NG/ML (0.02-0.05) 1.34 NG/ML (0.02-0.05) Red Blood Count 4.07 MIL/MM3 (4.50-5.90) 4.17 MIL/MM3 (4.50-5.90) Hemoglobin 12.8 GM/DL (13.0-17.0) 12.8 GM/DL (13.0-17.0) Hematocrit 37.3 % (39.0-51.0) 38.4 % (39.0-51.0) Neutrophils (%) (Auto) 71.8 % (16.0-70.0) Sodium Level 135 MEQ/L (136-145) Creatine Kinase MB 14.5 NG/ML (0.5-3.6) Triglycerides Level 181 MG/DL (42-150) HDL Cholesterol 30.7 MG/DL (40.0-60.0) Imaging Last Impressions Lower Extremity Ultrasound 11/23/16 7215 Signed Impressions: Service Date/Time: Thursday, November 24, 2016 00:23 - CONCLUSION: Normal examination. Nadeem Daly Jr., MD Chest X-Ray 11/23/16 1551 Signed Impressions: Service Date/Time: Wednesday, November 23, 2016 16:22 - CONCLUSION: 1. No acute cardiopulmonary findings identified. Jamie Boles MD PE at Discharge GENERAL: Obese patient in no acute distress. SKIN: No rashes, ecchymoses or lesions. HEAD: Atraumatic. Normocephalic. EYES: Pupils equal round and reactive. ENT: Nose without bleeding, purulent drainage or septal hematoma. NECK: Trachea midline. No JVD or lymphadenopathy. CARDIOVASCULAR: Regular rate and rhythm without murmurs, gallops, or rubs. RESPIRATORY: Clear to auscultation. Breath sounds equal bilaterally. No wheezes , rales, or rhonchi. GASTROINTESTINAL: Abdomen soft, non-tender, nondistended. No hepato-splenomegaly , or palpable masses. No guarding. MUSCULOSKELETAL: No clubbing cyanosis or edema. NEUROLOGICAL: Awake and alert. Motor and sensory grossly within normal limits. Normal speech. Hospital Course This is a pleasant 51 y/o male with GERD, Hypertension, Hyperlipidemia, DM II, who came to ER with Chest pain Status post Cardiac Cath performed yesterday. stable in his bedroom asking for some NSAIDS he takes Ibuprofen he prefer this medicine to narcotics, seen in the presence of nurse Miss Buitrago and his and another relatives. 11/25; Seen in his bedroom and discussed with nurse Miss Schmid, no nausea, vomit or diarrhea, he had some Shortness of breath secondary to Brilinta and switch to Effient by network applications specialist and recommended for discharge Assessment and Plan 51 y/o male with a history of gerd, htn, hld, dm and cad presented to the ED with complaints of chest pain. NSTEMI, troponin .14, EKG reviewed and showed SR with RBBB -Cardiac cath with [address] Lagos -Lipid panel ordered, start Lipitor 80mg hs per cardiology -Continue Cardiac Cath protocol, Aspirin, Coreg, Brilinta was switched to Effient due to SOB Right calf > than left, patient has been traveling, ruled out DVT. DM, chronic: Accu checks ACHS, hold metformin, will continue home medicines on discharge. except for metformin to re start tomorrow. ASKED THE PATIENT TO RE START METFORMIN TOMORROW NOT TODAY. HTN, chronic: CONTROLLED. Gerd, chronic: Resume home medications Headache Improved. DVT prophylaxis: [place] Discussed Condition With Patient, Nurse miss Schmid. all questions answered to the best of my abilities. Discharge Planning Discharge Home. Pt Condition on Discharge: Good Discharge Disposition: Discharge Home Discharge Time: <= 30 minutes Discharge Instructions DIET: Follow Instructions for: Heart Healthy Diet Activities you can perform: Regular-No Restrictions Bassem Carlson MD Nov 25, 2016 13:11
[2016-11-26] MEDS ORDERED: PRASUGREL 10 MG TAB PO SCH (09:00)
== END 2016-11-25 14:08 | disposition home or self-care (01) | DRG 247 ==
LOC: NEPC 15:19 → NEDA 17:44 → INTOOBSV 17:44 → HCIS 21:10 → OBSVTOIN 23:13
PROVIDERS: ADMIT Internal Medicine; ATTEND Internal Medicine
PROC: 027036Z Dilation of Coronary Artery, One Artery with Three Drug-eluting Intraluminal Devices, Percutaneous Approach (ICD-10-PCS; principal; 2016-11-23)
PROC: X2C0361 Extirpation of Matter from Coronary Artery, One Artery using Orbital Atherectomy Technology, Percutaneous Approach, New Technology Group 1 (ICD-10-PCS; 2016-11-23)
PROC: 4A023N7 Measurement of Cardiac Sampling and Pressure, Left Heart, Percutaneous Approach (ICD-10-PCS; 2016-11-23)
PROC: B2111ZZ Fluoroscopy of Multiple Coronary Arteries using Low Osmolar Contrast (ICD-10-PCS; 2016-11-23)
PROC: B2151ZZ Fluoroscopy of Left Heart using Low Osmolar Contrast (ICD-10-PCS; 2016-11-23)
DX: I21.4 Non-ST elevation (NSTEMI) myocardial infarction (principal); I25.119 Atherosclerotic heart disease of native coronary artery with unspecified angina pectoris; I10 Essential (primary) hypertension; I45.10 Unspecified right bundle-branch block; E11.9 Type 2 diabetes mellitus without complications; I25.5 Ischemic cardiomyopathy; E78.5 Hyperlipidemia, unspecified; Z79.84 Long term (current) use of oral hypoglycemic drugs; K21.9 Gastro-esophageal reflux disease without esophagitis; E66.9 Obesity, unspecified; Z82.49 Family history of ischemic heart disease and other diseases of the circulatory system; T50.995A Adverse effect of other drugs, medicaments and biological substances, initial encounter; R06.02 Shortness of breath
CPT/HCPCS: 71010; 80048; 80053; 80061; 82550; 82552; 82948; 83735; 84484; 85002; 85025; 85379; 85610; 85730; 92933; 93005; 93458; 93970; C1714; C1725; C1760; C1769; C1874; C1887; C1893; G0269; J1644; J1815; J2250; J3010; J7030; J7040; Q9967